=== PATIENT | male | born 1965 | race Caucasian/White ===

== ENCOUNTER 2016-10-25 16:36 | Emergency (ER) | payer SELFPAY ==
[2016-10-25 17:42] LABS: INR 1.28 (0.87-1.13)
[2016-10-25 17:46] LABS: Alanine Aminotransferase 20 units/L (7-56); Albumin 4.1 g/dL (3.9-5); Albumin/Globulin Ratio 1.2 %; Alkaline Phosphatase 102 units/L (35-129); Anion Gap 17 mmol/L; BUN/Creatinine Ratio 9.09; Blood Urea Nitrogen 10 mg/dL (9-20); Calcium 9.4 mg/dL (8.4-10.2); Carbon Dioxide 24 mmol/L (22-30); Chloride 102.7 mmol/L (98-107); Glucose 82 mg/dL (75-100); Lipase 50 units/L (13-60); Potassium 3.2 mmol/L (3.6-5.0); Sodium 140 mmol/L (137-145); Total Protein 7.5 g/dL (6.3-8.2)
--- NOTE | 2016-10-25 18:14 | Cat Scan Report ---
FINAL REPORT EXAM: CT HEAD/BRAIN WO CON HISTORY: DIZZINESS / BLURRED VISION TECHNIQUE: Standard unenhanced CT of the head at 5.0 millimeter axial increments. PRIORS: None. FINDINGS: The ventricular system is normal in size and configuration. There is no evidence for parenchymal volume loss. There is no evidence for mass lesion, mass effect, midline shift, acute intracranial hemorrhage, or acute ischemia/ infarction. No evidence for acute skull fracture is seen. No abnormality in the overlying scalp soft tissues is seen. Visualized paranasal sinuses are clear. Serge calcification of a few of the right mastoid air cells is seen. IMPRESSION: Negative CT of the head. No acute intracranial process noted.
[2016-10-25 18:23] LABS: Platelet Count 172 K/mm3 (140-440)
[2016-10-25 18:35] LABS: White Blood Count > 388.0 K/mm3 (4.5-11.0)
[2016-10-25 18:36] LABS: Hemoglobin 10.6 gm/dl (11.8-15.2); Mean Corpuscular Volume 97 fl (84-94)
[2016-10-25 18:37] LABS: Mean Corpuscular HGB Conc 34 % (32-34); Mean Corpuscular Hemoglobin 33 pg (28-32)
[2016-10-25 20:08] LABS: Basophils % (Manual) 1.5 % (0.0-1.8); Blastocytes % (Manual) 24.5 %; Total Cells Counted Percent 12.5
[2016-10-25 20:09] LABS: Anisocytosis 2+; Macrocytosis 1+; Poikilocytosis 2+
[2016-10-25 20:10] LABS: Hypochromasia 1+; Smudge Cells 2+
[2016-10-25 20:11] LABS: Diff Status Complete
[2016-10-25] MEDS ORDERED: NACL 0.9% 1000 ML 1,000 ML IV ONE (20:27)
--- NOTE | 2016-10-25 20:28 | Emergency Department Report ---
ED General Adult HPI - General Chief complaint: Abdominal Pain Stated complaint: PHYSICIAN REFERRAL Time Seen by Provider: 10/25/16 20:18 Source: patient, RN notes reviewed Mode of arrival: Ambulatory Limitations: No Limitations - History of Present Illness Initial comments: This is a 50-year-old male. He is previously unknown to me. He does not have a primary care doctor. He denies chronic medical conditions. The patient is sent to the ER for evaluation of hepatosplenomegaly. The patient reports that he's been having pain/ "ball in my stomach" for the past 4 months. The pain is achy. It is in the left lower quadrant. It does not radiate anywhere. It has no exacerbating or relieving factors. There is no headache, neck pain, chest pain or shortness of breath. Patient describes nonspecific dizziness and blurry vision. He describes weight loss. There is no hematemesis. There is no bright red blood per rectum. Patient reports that he had an outpatient ultrasound, which demonstrated a large spleen and large liver, however he does not have this report with him. -: Gradual Location: abdomen Quality: aching Consistency: intermittent Improves with: none Worsens with: none - Related Data Home Medications Medication Instructions Recorded Confirmed Last Taken Unobtainable 10/25/16 10/25/16 Unknown Allergies Allergy/AdvReac Type Severity Reaction Status Date / Time No Known Allergies Allergy Unverified 10/25/16 16:57 ED Review of Systems ROS: Stated complaint: PHYSICIAN REFERRAL Other details as noted in HPI Constitutional: malaise, weakness Eyes: denies: vision change ENT: denies: epistaxis Respiratory: denies: cough, shortness of breath Cardiovascular: denies: chest pain Gastrointestinal: abdominal pain Genitourinary: as per HPI Musculoskeletal: as per HPI Skin: as per HPI Neurological: weakness Psychiatric: as per HPI, anxiety ED Past Medical Hx - Past Medical History Hx Diabetes: Yes - Surgical History Past Surgical History?: No - Social History Smoking Status: Never Smoker Substance Use Type: None - Medications Home Medications: Home Medications Medication Instructions Recorded Confirmed Last Taken Type Unobtainable 10/25/16 10/25/16 Unknown History ED Physical Exam - General Limitations: No Limitations General appearance: alert, in no apparent distress - Head Head exam: Present: atraumatic, normocephalic - Eye Eye exam: Present: normal appearance, EOMI. Absent: nystagmus - ENT ENT exam: Present: normal exam, normal orophraynx, mucous membranes moist, normal external ear exam - Neck Neck exam: Present: normal inspection, full ROM. Absent: tenderness, meningismus - Respiratory Respiratory exam: Present: normal lung sounds bilaterally. Absent: respiratory distress, wheezes, rales, rhonchi, stridor, chest wall tenderness, accessory muscle use, decreased breath sounds, prolonged expiratory - Cardiovascular Cardiovascular Exam: Present: normal rhythm, tachycardia, normal heart sounds. Absent: systolic murmur, diastolic murmur, rubs, gallop - GI/Abdominal GI/Abdominal exam: Present: soft, normal bowel sounds, organomegaly. Absent: distended, tenderness, guarding, rebound, rigid - Rectal Rectal exam: Present: deferred - Extremities Exam Extremities exam: Present: normal inspection, full ROM, normal capillary refill. Absent: pedal edema, joint swelling, calf tenderness - Back Exam Back exam: Present: normal inspection, full ROM. Absent: tenderness, CVA tenderness (R), CVA tenderness (L), muscle spasm, paraspinal tenderness, vertebral tenderness - Neurological Exam Neurological exam: Present: alert, oriented X3, other (Extraocular movements intact. Tongue midline. No facial droop. Facial sensation intact to light touch in the V1, V2, V3 distribution bilaterally. 5 and 5 strength in 4 extremities.. Sensation is intact to light touch in 4 extremities.). Absent: motor sensory deficit - Psychiatric Psychiatric exam: Present: normal affect, normal mood - Skin Skin exam: Present: warm, dry, intact, normal color. Absent: rash ED Course Vital Signs 10/25/16 10/25/16 10/25/16 16:46 19:33 20:00 Temperature 98.3 F Pulse Rate 108 H 100 H 102 H Respiratory 24 31 H Rate Blood Pressure 149/100 121/71 O2 Sat by Pulse 93 86 Oximetry 10/25/16 10/25/16 10/25/16 20:31 21:11 21:13 Temperature Pulse Rate 103 H Respiratory 28 H 13 Rate Blood Pressure 126/76 126/76 126/76 O2 Sat by Pulse 88 99 100 Oximetry 10/25/16 10/25/16 10/25/16 21:30 22:00 22:30 Temperature Pulse Rate 101 H 102 H 99 H Respiratory 26 H 33 H 33 H Rate Blood Pressure 131/76 119/75 114/84 O2 Sat by Pulse 90 90 88 Oximetry 10/25/16 10/25/16 10/26/16 23:00 23:30 00:00 Temperature Pulse Rate 99 H 95 H 97 H Respiratory 22 31 H 31 H Rate Blood Pressure 123/93 133/81 139/85 O2 Sat by Pulse 88 86 Oximetry - Reevaluation(s) Reevaluation #1: 10/25/16 20:32 differential diagnosis: bLast crisis, polycythemia, nonspecific cancer/malignancy, pulmonary embolus Assessment and plan: 50-year-old male with palpable splenomegaly, tachycardia, white count of greater than 388 with a left shift, afebrile, concerning for chronic vs acute leukemic crisis He is currently saturating 87-88% on room air, with no pulmonary complaints. His outpatient imaging studies are not available. He will be placed on 2 L oxygen via nasal cannula. CT scan of the chest is ordered to exclude pulmonary embolus. CT scan of the abdomen and pelvis is ordered to better evaluate the patient's anatomy. Hematology on-call has been paged. 10/25/16 21:28 Reevaluation #2: 10/25/16 20:55 case d/w Dr Walsh; he recommends transfer to [place] for leukopheresis given elevated blast percentage. 10/25/16 20:58 10/25/16 21:06 Reevaluation #3: 10/25/16 21:29 case d/w Dr Anguiano of [place], who accepts the patient as a transfer. 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 The patient gave verbal permission for his test results and plan of care to be discussed with his family, and I discussed the aforementioned test results, plan of care with the patient's daughter, who then translated for the patient, who authorized and agree transfer. 10/25/16 21:55 ED Medical Decision Making - Lab Data Result diagrams: 10/25/16 17:10 10/25/16 17:10 Vital Signs 10/25/16 10/25/16 10/25/16 16:46 19:33 20:00 Temperature 98.3 F Pulse Rate 108 H 100 H 102 H Respiratory 24 31 H Rate Blood Pressure 149/100 121/71 O2 Sat by Pulse 93 86 Oximetry 10/25/16 10/25/16 10/25/16 20:31 21:11 21:13 Temperature Pulse Rate 103 H Respiratory 28 H 13 Rate Blood Pressure 126/76 126/76 126/76 O2 Sat by Pulse 88 99 100 Oximetry 10/25/16 10/25/16 10/25/16 21:30 22:00 22:30 Temperature Pulse Rate 101 H 102 H 99 H Respiratory 26 H 33 H 33 H Rate Blood Pressure 131/76 119/75 114/84 O2 Sat by Pulse 90 90 88 Oximetry 10/25/16 10/25/16 10/26/16 23:00 23:30 00:00 Temperature Pulse Rate 99 H 95 H 97 H Respiratory 22 31 H 31 H Rate Blood Pressure 123/93 133/81 139/85 O2 Sat by Pulse 88 86 Oximetry Lab Results 10/25/16 10/25/16 10/25/16 Range/Units 16:41 17:10 17:10 WBC > 388.0 H* (4.5-11.0) K/mm3 RBC 3.20 L (3.65-5.03) M/mm3 Hgb 10.6 L (11.8-15.2) gm/dl Hct 31.0 L (35.5-45.6) % MCV 97 H (84-94) fl MCH 33 H (28-32) pg MCHC 34 (32-34) % RDW 19.0 H (13.2-15.2) % Plt Count 172 (140-440) K/mm3 Add Manual Diff Complete Total Counted 200 Seg Neutrophils % Operation Specialist Seg Neuts % (Manual) 28.5 L (40.0-70.0) % Band Neutrophils % 20.5 % Lymphocytes % (Manual) 0 L (13.4-35.0) % Reactive Lymphs % (Man) 0 % Monocytes % (Manual) 0.5 (0.0-7.3) % Eosinophils % (Manual) 2.0 (0.0-4.3) % Basophils % (Manual) 1.5 (0.0-1.8) % Metamyelocytes % 8.5 % Myelocytes % 11.0 % Promyelocytes % 3.0 % Blast Cells % 24.5 % Nucleated RBC % 2.0 H (0.0-0.9) % Seg Neutrophils # Operation Specialist Seg Neutrophils # Man 0.0 L (1.8-7.7) K/mm3 Band Neutrophils # 0.0 K/mm3 Lymphocytes # (Manual) 0.0 L (1.2-5.4) K/mm3 Abs React Lymphs (Man) 0.0 K/mm3 Monocytes # (Manual) 0.0 (0.0-0.8) K/mm3 Eosinophils # (Manual) 0.0 (0.0-0.4) K/mm3 Basophils # (Manual) 0.0 (0.0-0.1) K/mm3 Metamyelocytes # 0.0 K/mm3 Myelocytes # 0.0 K/mm3 Promyelocytes # 0.0 K/mm3 Blast Cells # 0.0 K/mm3 WBC Morphology Not Reportable Hypersegmented Neuts Not Reportable Hyposegmented Neuts Not Reportable Hypogranular Neuts Not Reportable Smudge Cells 2+ Toxic Granulation Not Reportable Toxic Vacuolation Not Reportable Dohle Bodies Not Reportable Pelger-Huet Anomaly Not Reportable Ramírez Rods Not Reportable Platelet Estimate Appears normal Clumped Platelets Not Reportable Plt Clumps, EDTA Not Reportable Large Platelets Not Reportable Giant Platelets Not Reportable Platelet Satelliting Not Reportable Plt Morphology Comment Not Reportable RBC Morphology Not Reportable Dimorphic RBCs Not Reportable Polychromasia Not Reportable Hypochromasia 1+ Poikilocytosis 2+ Anisocytosis 2+ Microcytosis Not Reportable Macrocytosis 1+ Spherocytes Not Reportable Pappenheimer Bodies Not Reportable Sickle Cells Not Reportable Target Cells Not Reportable Tear Drop Cells Not Reportable Ovalocytes Not Reportable Helmet Cells Not Reportable [place] Bodies Not Reportable [place] Rings Not Reportable Areli Cells Not Reportable Bite Cells Not Reportable Crenated Cell Not Reportable Elliptocytes Not Reportable Acanthocytes (Spur) Not Reportable Rouleaux Not Reportable Hemoglobin C Crystals Not Reportable Schistocytes Not Reportable Malaria parasites Not Reportable Be Bodies Not Reportable Hem Pathologist Commnt Sent to pathology PT (12.2-14.9) Sec. INR (0.87-1.13) Sodium 140 (137-145) mmol/L Potassium 3.2 L (3.6-5.0) mmol/L Chloride 102.7 (98-107) mmol/L Carbon Dioxide 24 (22-30) mmol/L Anion Gap 17 mmol/L BUN 10 (9-20) mg/dL Creatinine 1.1 (0.8-1.5) mg/dL Estimated GFR > 60 ml/min BUN/Creatinine Ratio 9.09 % Glucose 82 (75-100) mg/dL POC Glucose 75 (70-105) Uric Acid (3.5-7.6) mg/dL Calcium 9.4 (8.4-10.2) mg/dL Magnesium (1.7-2.3) mg/dL Total Bilirubin 0.40 (0.1-1.2) mg/dL AST 31 (5-40) units/L ALT 20 (7-56) units/L Alkaline Phosphatase 102 (35-129) units/L Lactate Dehydrogenase (91-180) units/L Total Creatine Kinase (55-170) units/L Total Protein 7.5 (6.3-8.2) g/dL Albumin 4.1 (3.9-5) g/dL Albumin/Globulin Ratio 1.2 % Lipase 50 (13-60) units/L Urine Color (Yellow) Urine Turbidity (Clear) Urine pH (5.0-7.0) Ur Specific [place] (1.003-1.030) Urine Protein (Negative) mg/dL Urine Glucose (UA) (Negative) mg/dL Urine Ketones (Negative) mg/dL Urine Blood (Negative) Urine Nitrite (Negative) Urine Bilirubin (Negative) Urine Urobilinogen (<2.0) mg/dL Ur Leukocyte Esterase (Negative) Urine WBC (Auto) (0.0-6.0) /HPF Urine RBC (Auto) (0.0-6.0) /HPF Urine Mucus /HPF 10/25/16 10/25/16 10/25/16 Range/Units 17:10 17:10 17:15 WBC (4.5-11.0) K/mm3 RBC (3.65-5.03) M/mm3 Hgb (11.8-15.2) gm/dl Hct (35.5-45.6) % MCV (84-94) fl MCH (28-32) pg MCHC (32-34) % RDW (13.2-15.2) % Plt Count (140-440) K/mm3 Add Manual Diff Total Counted Seg Neutrophils % Seg Neuts % (Manual) (40.0-70.0) % Band Neutrophils % % Lymphocytes % (Manual) (13.4-35.0) % Reactive Lymphs % (Man) % Monocytes % (Manual) (0.0-7.3) % Eosinophils % (Manual) (0.0-4.3) % Basophils % (Manual) (0.0-1.8) % Metamyelocytes % % Myelocytes % % Promyelocytes % % Blast Cells % % Nucleated RBC % (0.0-0.9) % Seg Neutrophils # Seg Neutrophils # Man (1.8-7.7) K/mm3 Band Neutrophils # K/mm3 Lymphocytes # (Manual) (1.2-5.4) K/mm3 Abs React Lymphs (Man) K/mm3 Monocytes # (Manual) (0.0-0.8) K/mm3 Eosinophils # (Manual) (0.0-0.4) K/mm3 Basophils # (Manual) (0.0-0.1) K/mm3 Metamyelocytes # K/mm3 Myelocytes # K/mm3 Promyelocytes # K/mm3 Blast Cells # K/mm3 WBC Morphology Hypersegmented Neuts Hyposegmented Neuts Hypogranular Neuts Smudge Cells Toxic Granulation Toxic Vacuolation Dohle Bodies Pelger-Huet Anomaly Ramírez Rods Platelet Estimate Clumped Platelets Plt Clumps, EDTA Large Platelets Giant Platelets Platelet Satelliting Plt Morphology Comment RBC Morphology Dimorphic RBCs Polychromasia Hypochromasia Poikilocytosis Anisocytosis Microcytosis Macrocytosis Spherocytes Pappenheimer Bodies Sickle Cells Target Cells Tear Drop Cells Ovalocytes Helmet Cells [place] Bodies [place] Rings [place] Cells Bite Cells Crenated Cell Elliptocytes Acanthocytes (Spur) Rouleaux Hemoglobin C Crystals Schistocytes Malaria parasites Be Bodies Hem Pathologist Commnt PT 15.9 H (12.2-14.9) Sec. INR 1.28 H (0.87-1.13) Sodium (137-145) mmol/L Potassium (3.6-5.0) mmol/L Chloride (98-107) mmol/L Carbon Dioxide (22-30) mmol/L Anion Gap mmol/L BUN (9-20) mg/dL Creatinine (0.8-1.5) mg/dL Estimated GFR ml/min BUN/Creatinine Ratio % Glucose (75-100) mg/dL POC Glucose (70-105) Uric Acid 12.1 H (3.5-7.6) mg/dL Calcium (8.4-10.2) mg/dL Magnesium 2.40 H (1.7-2.3) mg/dL Total Bilirubin (0.1-1.2) mg/dL AST (5-40) units/L ALT (7-56) units/L Alkaline Phosphatase (35-129) units/L Lactate Dehydrogenase 1047 H (91-180) units/L Total Creatine Kinase 44 L (55-170) units/L Total Protein (6.3-8.2) g/dL Albumin (3.9-5) g/dL Albumin/Globulin Ratio % Lipase (13-60) units/L Urine Color (Yellow) Urine Turbidity (Clear) Urine pH (5.0-7.0) Ur Specific [place] (1.003-1.030) Urine Protein (Negative) mg/dL Urine Glucose (UA) (Negative) mg/dL Urine Ketones (Negative) mg/dL Urine Blood (Negative) Urine Nitrite (Negative) Urine Bilirubin (Negative) Urine Urobilinogen (<2.0) mg/dL Ur Leukocyte Esterase (Negative) Urine WBC (Auto) (0.0-6.0) /HPF Urine RBC (Auto) (0.0-6.0) /HPF Urine Mucus /HPF 10/25/16 Range/Units 20:53 WBC (4.5-11.0) K/mm3 RBC (3.65-5.03) M/mm3 Hgb (11.8-15.2) gm/dl Hct (35.5-45.6) % MCV (84-94) fl MCH (28-32) pg MCHC (32-34) % RDW (13.2-15.2) % Plt Count (140-440) K/mm3 Add Manual Diff Total Counted Seg Neutrophils % Seg Neuts % (Manual) (40.0-70.0) % Band Neutrophils % % Lymphocytes % (Manual) (13.4-35.0) % Reactive Lymphs % (Man) % Monocytes % (Manual) (0.0-7.3) % Eosinophils % (Manual) (0.0-4.3) % Basophils % (Manual) (0.0-1.8) % Metamyelocytes % % Myelocytes % % Promyelocytes % % Blast Cells % % Nucleated RBC % (0.0-0.9) % Seg Neutrophils # Seg Neutrophils # Man (1.8-7.7) K/mm3 Band Neutrophils # K/mm3 Lymphocytes # (Manual) (1.2-5.4) K/mm3 Abs React Lymphs (Man) K/mm3 Monocytes # (Manual) (0.0-0.8) K/mm3 Eosinophils # (Manual) (0.0-0.4) K/mm3 Basophils # (Manual) (0.0-0.1) K/mm3 Metamyelocytes # K/mm3 Myelocytes # K/mm3 Promyelocytes # K/mm3 Blast Cells # K/mm3 WBC Morphology Hypersegmented Neuts Hyposegmented Neuts Hypogranular Neuts Smudge Cells Toxic Granulation Toxic Vacuolation Dohle Bodies Pelger-Huet Anomaly Ramírez Rods Platelet Estimate Clumped Platelets Plt Clumps, EDTA Large Platelets Giant Platelets Platelet Satelliting Plt Morphology Comment RBC Morphology Dimorphic RBCs Polychromasia Hypochromasia Poikilocytosis Anisocytosis Microcytosis Macrocytosis Spherocytes Pappenheimer Bodies Sickle Cells Target Cells Tear Drop Cells Ovalocytes Helmet Cells [place] Bodies [place] Rings Areli Cells Bite Cells Crenated Cell Elliptocytes Acanthocytes (Spur) Rouleaux Hemoglobin C Crystals Schistocytes Malaria parasites Be Bodies Hem Pathologist Commnt PT (12.2-14.9) Sec. INR (0.87-1.13) Sodium (137-145) mmol/L Potassium (3.6-5.0) mmol/L Chloride (98-107) mmol/L Carbon Dioxide (22-30) mmol/L Anion Gap mmol/L BUN (9-20) mg/dL Creatinine (0.8-1.5) mg/dL Estimated GFR ml/min BUN/Creatinine Ratio % Glucose (75-100) mg/dL POC Glucose (70-105) Uric Acid (3.5-7.6) mg/dL Calcium (8.4-10.2) mg/dL Magnesium (1.7-2.3) mg/dL Total Bilirubin (0.1-1.2) mg/dL AST (5-40) units/L ALT (7-56) units/L Alkaline Phosphatase (35-129) units/L Lactate Dehydrogenase (91-180) units/L Total Creatine Kinase (55-170) units/L Total Protein (6.3-8.2) g/dL Albumin (3.9-5) g/dL Albumin/Globulin Ratio % Lipase (13-60) units/L Urine Color Yellow (Yellow) Urine Turbidity Clear (Clear) Urine pH 5.0 (5.0-7.0) Ur Specific [place] 1.015 (1.003-1.030) Urine Protein <15 mg/dl (Negative) mg/dL Urine Glucose (UA) Neg (Negative) mg/dL Urine Ketones Neg (Negative) mg/dL Urine Blood Neg (Negative) Urine Nitrite Neg (Negative) Urine Bilirubin Neg (Negative) Urine Urobilinogen < 2.0 (<2.0) mg/dL Ur Leukocyte Esterase Neg (Negative) Urine WBC (Auto) < 1.0 (0.0-6.0) /HPF Urine RBC (Auto) 3.0 (0.0-6.0) /HPF Urine Mucus Few /HPF - EKG Data -: EKG Interpreted by Me Rate: tachycardia - EKG Data 10/25/16 20:33 normal sinus, 99 bpm, normal intervals, normal axis, not morphologically consistent with STEMI, there is no prior for comparison. - Radiology Data Radiology results: report reviewed, image reviewed interpreted by me: X-ray of the chest is negative for acute disease CT scan of the abdomen and pelvis negative. CT scan of the chest interpretation is pending Critical care attestation.: If time is entered above; I have spent that time in minutes in the direct care of this critically ill patient, excluding procedure time. ED Disposition Clinical Impression: Hypoxia Leukocytosis (leucocytosis) Qualifiers: Leukocytosis type: unspecified Qualified Code(s): D72.829 - Elevated white blood cell count, unspecified Disposition: DC/TX-02 [id number]-TRM GEN HOSP IP Is pt being admited?: No Condition: Good Referrals: PRIMARY CARE, [Primary Care Provider] - 3-5 Days
[2016-10-25] MEDS ORDERED: K-DUR PO ONE (20:53)
[2016-10-25] MEDS ORDERED: NACL ONE (21:00)
[2016-10-25 21:18] LABS: Bilirubin,Urine NEG (Negative); Blood,Urine NEG (Negative); Ketones,Urine NEG (Negative); Leukocyte Esterase,Urine NEG (Negative); Mucus,Urine FEW /HPF; Nitrite,Urine NEG (Negative); Protein,Urine <15 mg/dL mg/dL (Negative); Urobilinogen,Urine < 2.0 mg/dL (<2.0); WBC,Urine < 1.0 /HPF (0.0-6.0)
[2016-10-25 21:36] LABS: Magnesium 2.4 mg/dL (1.7-2.3); Uric Acid 12.1 mg/dL (3.5-7.6)
--- NOTE | 2016-10-25 22:21 | Cat Scan Report ---
FINAL REPORT EXAM: CT ABDOMEN PELVIS W CON HISTORY: abdominal pain, hepatosplenomegaly TECHNIQUE: CT images are acquired through the Abdomen and Pelvis following intravenous administration of contrast. Transaxial, coronal and sagittal reformations are provided. PRIORS: None FINDINGS: Please see CT chest of the same date. The pelvis splenomegaly. Sequela of portal hypertension including multiple varices. No large gastroesophageal varices identified. Kidneys show no worrisome lesions, hydronephrosis, or calculi. Urinary bladder is without intraluminal stone. Small and large bowel are normal in caliber. Appendix is normal. No free air, free fluid, or lymphadenopathy identified. Aorta is normal in course and caliber. Superficial soft tissues are unremarkable. No acute or aggressive appearing skeletal findings. IMPRESSION: Sequela of portal hypertension as detailed above.
[2016-10-26 01:38] VITALS: BP 135/85
--- NOTE | 2016-10-26 07:37 | XRay Report ---
Chest 2 views: History: Dizziness weight loss. Findings: Normal cardiomediastinal silhouette. Trachea is midline. No consolidation, pneumothorax or pleural effusion. Impression: No acute cardiopulmonary findings.
--- NOTE | 2016-10-26 11:31 | Cat Scan Report ---
FINAL REPORT EXAM: CT ANGIOGRAPHY CHEST, abdomen and pelvis HISTORY: ? PE TECHNIQUE: CT imaging obtained through the chest in pulmonary angiographic phase following intravenous administration of contrast and subsequently through the abdomen and pelvis in cortical medullary phase. Transaxial, Coronal and sagittal reformats including maximal intensity projections are provided. PRIORS: None. FINDINGS: Chest: Cardiomegaly. Coronary artery disease. No pericardial effusion. Normal caliber main pulmonary artery. No central or large segmental pulmonary embolism. More detailed evaluation for pulmonary embolism is compromised by suboptimal opacification of the pulmonary arterial tree. Thoracic aorta is normal in course and caliber. No pneumothorax, effusion or focal airspace disease. The central airways are patent. No bronchiectasis. Abdomen/pelvis: Splenomegaly. Gastrohepatic and gastrosplenic varices. The portal vein and superior mesenteric vein are well opacified and patent. The liver, gallbladder, pancreas and adrenal glands are unremarkable. Kidneys are normal in size, axis and position. No hydroureteronephrosis or nephrolithiasis. No stones in the urinary bladder. No free fluid in the pelvis. Hollow enteric organs are normal in course and caliber. Normal appendix. No intra-abdominal free air/fluid or lymphadenopathy. The aorta is normal in course and caliber. No periaortic stranding or fluid. The superficial soft tissues are unremarkable. No acute bony abnormality or worrisome osseous lesions identified. IMPRESSION: No central or large segmental pulmonary embolism. No acute finding within the chest, abdomen or pelvis. Sequela of portal hypertension including splenomegaly and multiple varices as detailed above. Gastroenterology follow-up is recommended if not already established.
== END 2016-10-26 01:40 | disposition short-term general hospital (02) ==
LOC: ED 16:36
DX: R09.02 Hypoxemia (principal); D72.829 Elevated white blood cell count, unspecified; E11.9 Type 2 diabetes mellitus without complications
CPT/HCPCS: 36415; 70450; 71020; 71275; 74177; 80053; 81001; 82550; 82962; 83615; 83690; 83735; 84550; 85007; 85025; 85610; 93005; 93010; 96360; 99285; J7030; Q9967

== ENCOUNTER 2020-07-10 19:58 | Inpatient (IN) | payer MEDICAID ==
[2020-07-10] MEDS ORDERED: SODIUM CHLORIDE 0.9% 500 ML 500 ML IV ONE (21:01)
[2020-07-10] MEDS ORDERED: ACETAMINOPHEN 500 MG TAB PO STA (21:01)
[2020-07-10 21:22] LABS: Basophils % (Auto) 0.3 % (0.0-1.8); Eosinophils % (Auto) 0.2 % (0.0-4.3); Hematocrit 42.5 % (35.5-45.6); Hemoglobin 14.8 gm/dl (11.8-15.2); Lymphocytes # (Auto) 0.8 K/mm3 (1.2-5.4); Lymphocytes % (Auto) 6.7 % (13.4-35.0); Mean Corpuscular HGB Conc 35 % (32-34); Mean Corpuscular Volume 89 fl (84-94); Monocytes % (Auto) 8.9 % (0.0-7.3); Platelet Count 207 K/mm3 (140-440); Red Blood Count 4.81 M/mm3 (3.65-5.03); Red Cell Distribution Width 13.7 % (13.2-15.2)
[2020-07-10] MEDS ORDERED: fentaNYL 100 MCG/2 ML INJ IV ONE (21:23)
[2020-07-10] MEDS ORDERED: SODIUM CHLORIDE 0.9% 1000 ML 1,000 ML IV ONE (21:23)
[2020-07-10] MEDS ORDERED: ONDANSETRON 4 MG/2 ML INJ IV ONE (21:23)
--- NOTE | 2020-07-10 21:27 | Emergency Department Report ---
HPI - General Chief Complaint: Fever Time Seen by Provider: 07/10/20 21:08 - HPI HPI: Room 24 The patient is a 54-year-old male present with a chief complaint of headache. The patient states for the past 3 days he has had a frontal headache that is bee n intermittent. Patient states initially BC powder which helped his headache however today BC powder has not helped at all. Patient admits to nausea and dry heaving but denies vomiting. Patient states because of this he has been unable to eat food. Patient complains of bilateral rib soreness from the dry heaving. Patient denies any preceding trauma. Patient currently gives his pain a score o f 7/10. Patient has a history of leukemia states he last received chemotherapy 3 days ago ED Past Medical Hx - Past Medical History Previous Medical History?: Yes Hx Hypertension: Yes Hx Diabetes: Yes Hx of Cancer: Yes (Leukemia) Additional medical history: Leukemia - Surgical History Past Surgical History?: No - Family History Family history: no significant - Social History Smoking Status: Never Smoker Substance Use Type: None (Denies illicit drug use), Alcohol (Occasional) - Medications Home Medications: Home Medications Medication Instructions Recorded Confirmed Last Taken Type Unobtainable 10/25/16 10/25/16 Unknown History ED Review of Systems ROS: Stated complaint: HIGH BP/HEADACHE Other details as noted in HPI Constitutional: fever Eyes: denies: eye pain ENT: denies: throat pain Respiratory: denies: cough, shortness of breath Cardiovascular: denies: chest pain Endocrine: no symptoms reported Gastrointestinal: nausea. denies: vomiting Genitourinary: denies: dysuria Musculoskeletal: myalgia Neurological: headache Physical Exam - Physical Exam Vital Signs: Vital Signs 07/10/20 20:40 Temperature 103.2 F H Pulse Rate 112 H Respiratory 20 Rate Blood Pressure 143/71 O2 Sat by Pulse 97 Oximetry Physical Exam: GENERAL: The patient is well-developed well-nourished male lying on stretcher not appearing to be in acute distress. [] HEENT: Normocephalic. Atraumatic. Extraocular motions are intact. Patient has moist mucous membranes. NECK: Supple. No meningitic signs are noted. There is no nuchal rigidity CHEST/LUNGS: Clear to auscultation. There is no respiratory distress noted. HEART/CARDIOVASCULAR: Regular. There is no tachycardia. There is no gallop rub or murmur. ABDOMEN: Abdomen is soft, with soreness to palpation in the midepigastric and right upper quadrant. Patient has normal bowel sounds. There is no abdominal distention. SKIN: There is no rash. There is no edema. There is no diaphoresis. NEURO: The patient is awake, alert, and oriented. The patient is cooperative. The patient has no focal neurologic deficits. The patient has normal speech. MUSCULOSKELETAL: There is no evidence of acute injury. ED Course Vital Signs 07/10/20 20:40 Temperature 103.2 F H Pulse Rate 112 H Respiratory 20 Rate Blood Pressure 143/71 O2 Sat by Pulse 97 Oximetry - Reevaluation(s) Reevaluation #1: 07/10/20 23:27 Patient exhibiting frequent PVCs on monitor - Lumbar Puncture Consent Obtained: verbal consent, written consent Time Out Performed: Yes Indication for Procedure: headache, fever work up Patient Position: Sitting Upright/Leaning F Skin Prep: Povidone-Iodine 1% Local Anesthetic Used: Lidocaine 1% Amount of anesthesia used (mls): 5 Spinal Needle Gauge: 20G Spinal Needle Length: 3in Interspace Used: L4-L5 Fluid Initially Obtained: clear Complications: none Patient Tolerated Procedure: well ED Medical Decision Making - Lab Data Result diagrams: 07/10/20 20:50 07/10/20 20:50 - EKG Data -: EKG Interpreted by Me EKG shows normal: sinus rhythm Rate: normal - EKG Data When compared to previous EKG there are: previous EKG unavailable Interpretation: nonspecific ST-T wave doroteo, other (PAC) - Radiology Data Radiology results: report reviewed (Chest x-ray, CT head), image reviewed (Chest x-ray, CT head) interpreted by me: Chest x-ray-left lower lobe haziness. No pneumothorax. No foreign body seen [facility] [address] [place] [address] XRay Report Signed Patient: DAVON ARREGUIN MR#: [id number] : 1965 Acct:[id number] Age/Sex: 54 / M ADM Date: 07/10/20 Loc: ED Attending Dr: Ordering Physician: YSEDA CHAVARRIA MD Date of Service: 07/10/20 Procedure(s): XR chest 1V ap Accession Number(s): [id number] cc: SYEDA CHAVARRIA MD Fluoro Time In Minutes: CHEST 1 VIEW INDICATION: possible Sepsis COMPARISON: 10/25/2016 FINDINGS: SUPPORT DEVICES: None. HEART / MEDIASTINUM: No significant abnormality. LUNGS / PLEURA: Faint density left lower lobe. No pleural abnormality. No pneumothorax. ADDITIONAL FINDINGS: IMPRESSION: 1. Questionable left lower lobe pneumonia Signer Name: Tony العلي MD Signed: 07/10/2020 9:36 PM Workstation Name: [id number] Transcribed By: MAKENZIE Dictated By: Tony العلي MD Electronically Authenticated By: Tony العلي MD Signed Date/Time: 2135 DD/ 34 TD/TT: [facility] [address] [place] [address] Cat Scan Report Signed Patient: DAVON ARREGUIN MR#: [id number] : 1965 Acct:[id number] Age/Sex: 54 / M ADM Date: 07/10/20 Loc: ED Attending Dr: Ordering Physician: SYEDA CHAVARRIA MD Date of Service: 07/10/20 Procedure(s): CT head/brain wo con Accession Number(s): [id number] cc: SYEDA CHAVARRIA MD CT HEAD WITHOUT CONTRAST HISTORY: Frontal headache. h/o leukemia COMPARISON: None TECHNIQUE: CT imaging of the head was performed in the axial, sagittal, and coronal projections and bone algorithm in axial projection in the soft tissue algorithm. All CT scans at this location are performed using CT dose reduction for ALARA by means of automated exposure control. CONTRAST: None. FINDINGS: CT of the head 10/25/2016 compared Cerebral and Cerebellar Hemispheres: No evidence of mass or mass effect. No midline shift. No acute hemorrhage. No acute cortical infarction. No extra-axial fluid collection. Ventricles: Normal in size and configuration for age. Osseous Structures: No significant abnormality. Visualized Paranasal Sinuses: No significant abnormality. Additional Findings: None IMPRESSION: 1. No acute intracranial abnormality. NOTE: Acute infarct may not be visible by noncontrast CT. Signer Name: Tony العلي MD Signed: 2020 10:09 PM Workstation Name: [id number] Transcribed By: MAKENZIE Dictated By: Tony العلي MD Electronically Authenticated By: Tony العلي MD Signed Date/Time: 07/10/202208 DD/ 06 TD/TT: Print - Differential Diagnosis Sinusitis, meningitis, intracranial abscess, headache, sepsis, DKA Critical care attestation.: If time is entered above; I have spent that time in minutes in the direct care of this critically ill patient, excluding procedure time. ED Disposition Clinical Impression: Pneumonia, Headache, Frequent PVCs, Fever Disposition: OP ADMIT IP TO THIS HOSP Is pt being admited?: Yes Does the pt Need Aspirin: Yes Condition: Fair Instructions: Bacterial Pneumonia (ED) Time of Disposition: 01:18 (Hospitalist paged (Dr Mccray))
[2020-07-10 21:30] LABS: Bilirubin,Urine NEG (Negative); Blood,Urine SM (Negative); Color,Urine Yellow (Yellow); Mucus,Urine 3+ /HPF
[2020-07-10 21:32] LABS: INR 1.15 (0.87-1.13)
[2020-07-10 21:36] LABS: Alanine Aminotransferase 49 units/L (7-56); Albumin 3.6 g/dL (3.9-5); BUN/Creatinine Ratio 10; Blood Urea Nitrogen 10 mg/dL (9-20); Calcium 9.4 mg/dL (8.4-10.2); Hemolysis Index 3
--- NOTE | 2020-07-10 21:41 | XRay Report ---
CHEST 1 VIEW INDICATION: possible Sepsis COMPARISON: 10/25/2016 FINDINGS: SUPPORT DEVICES: None. HEART / MEDIASTINUM: No significant abnormality. LUNGS / PLEURA: Faint density left lower lobe. No pleural abnormality. No pneumothorax. ADDITIONAL FINDINGS: IMPRESSION: 1. Questionable left lower lobe pneumonia Signer Name: Tony العلي MD Signed: 07/10/2020 9:36 PM Workstation Name: [id number]
--- NOTE | 2020-07-10 22:14 | Cat Scan Report ---
CT HEAD WITHOUT CONTRAST HISTORY: Frontal headache. h/o leukemia COMPARISON: None TECHNIQUE: CT imaging of the head was performed in the axial, sagittal, and coronal projections and bone algori thm in axial projection in the soft tissue algorithm. All CT scans at this location are performed using CT dose reduction for ALARA by means of automated e xposure control. CONTRAST: None. FINDINGS: CT of the head 10/25/2016 compared Cerebral and Cerebellar Hemispheres: No evidence of mass or mass effect. No midline shift. No acute hemorrhage. No acute cortical infarction. No extra-axial fluid collection. Ventricles: Normal in size and configuration for age. Osseous Structures: No significant abnormality. Visualized Paranasal Sinuses: No significant abnormality. Additional Findings: None IMPRESSION: 1. No acute intracranial abnormality. NOTE: Acute infarct may not be visible by noncontrast CT. Signer Name: Tony العلي MD Signed: 07/10/2020 10:09 PM Workstation Name: [id number]
[2020-07-10] MEDS ORDERED: AZITHROMYCIN/NS 500 MG/250 ML 500 MG/250 ML BAG IV ONE (23:26)
[2020-07-10] MEDS ORDERED: cefTRIAXone/NS 2 GM/100 ML 2 GM/100 ML BAG IV ONE (23:26)
[2020-07-11 00:26] LABS: Glucose,CSF 67 mg/dL
[2020-07-11 00:47] LABS: Appearance,CSF Clear
[2020-07-11 01:12] LABS: Basophils CSF 0 %
[2020-07-11 01:13] LABS: White Blood Cell,CSF 2 /mm3 (1-10)
[2020-07-11 01:14] LABS: Red Blood Cell,CSF 2 /mm3 (0-0)
[2020-07-11] MEDS ORDERED: ASPIRIN 325 MG TAB PO ONE (01:23)
--- NOTE | 2020-07-11 02:25 | History and Physical Report ---
History of Present Illness Date of examination: 07/11/20 Date of admission: 07/11/20 Chief complaint: Headache Fever History of present illness: The patient is a 54-year-old male present with a chief complaint of headache. The patient states for the past 3 days he has had a frontal headache that is been intermittent. Patient states initially BC powder which helped his headache however today BC powder has not helped at all. Patient admits to nausea and dry heaving but denies vomiting. Patient states because of this he has been unable to eat food. Patient complains of bilateral rib soreness from the dry heaving. Patient denies any preceding trauma. Patient currently gives his pain a score of 7/10. Patient has a history of leukemia states he last received chemotherapy 3 days ago Ed work up shows-WBC 11.3, hemoglobin 14.8, platelet 207, D-dimer 1024.2, sodium level 130 Sodium 130, potassium 4.4, creatinine 1.0, glucose 129. CT of the head negative no acute finding, chest x-ray showed left lower lobe pneumonia. EKG frequent PVC. Patient seen in ED at bedside. Patient alert oriented x3. Patient reports he came due to headache and fever. Patient report he has headache presently. Pain level 5/10. Lumbar puncture done spinal fluid collected sent for pathology test -will follow up with result Past History Past Medical History: diabetes, other (Leucomia) Past Surgical History: No surgical history Social history: no significant social history Medications and Allergies Allergies Allergy/AdvReac Type Severity Reaction Status Date / Time No Known Allergies Allergy Unverified 10/25/16 16:57 Home Medications Medication Instructions Recorded Confirmed Last Taken Type Unobtainable 10/25/16 10/25/16 Unknown History Review of Systems Constitutional: fatigue, weakness, malaise Ears, nose, mouth and throat: no epistaxis Cardiovascular: shortness of breath Respiratory: cough, congestion Gastrointestinal: no melena Genitourinary Male: no genital sores Rectal: no pain Musculoskeletal: myalgias Integumentary: no rash, no pruritis Neurological: no weakness Hematologic/Lymphatic: no easy bruising, no easy bleeding Allergic/Immunologic: no urticaria Exam - Constitutional Vitals: Temp Pulse Resp BP Pulse Ox 99.4 F 86 21 107/74 97 07/10/20 23:29 07/11/20 01:30 07/11/20 01:30 07/11/20 01:30 07/11/20 01:30 General appearance: Present: mild distress - EENT Eyes: Present: PERRL ENT: hearing intact, clear oral mucosa - Neck Neck: Present: supple, normal ROM - Respiratory Respiratory effort: normal Respiratory: bilateral: CTA - Cardiovascular Heart rate: 86 Heart Sounds: Present: S1 & S2. Absent: rub, click - Extremities Extremities: pulses symmetrical, No edema Peripheral Pulses: within normal limits - Abdominal General gastrointestinal: Present: soft, non-tender, non-distended, normal bowel sounds Male genitourinary: Present: normal - Integumentary Integumentary: Present: clear, warm, dry - Musculoskeletal Musculoskeletal: gait normal, strength equal bilaterally - Psychiatric Psychiatric: appropriate mood/affect, intact judgment & insight, cooperative - Neurologic Neurologic: CNII-XII intact, moves all extremities - Allied Health Allied health notes reviewed: nursing HEART Score - HEART Score Troponin: Troponin T < 0.010 ng/mL (0.00-0.029) 07/10/20 Unknown Results - Labs CBC & Chem 7: 07/10/20 20:50 07/11/20 01:30 Labs: Abnormal lab results 07/10/20 07/10/20 07/10/20 Range/Units 20:50 20:50 21:06 WBC 11.3 H (4.5-11.0) K/mm3 MCHC 35 H (32-34) % Lymph % (Auto) 6.7 L (13.4-35.0) % [place] % (Auto) 8.9 H (0.0-7.3) % Lymph # (Auto) 0.8 L (1.2-5.4) K/mm3 [place] # (Auto) 1.0 H (0.0-0.8) K/mm3 Seg Neutrophils % 83.9 H (40.0-70.0) % Seg Neutrophils # 9.5 H (1.8-7.7) K/mm3 INR 1.15 H (0.87-1.13) D-Dimer (0-234) ng/mlDDU Sodium 130 L (137-145) mmol/L Chloride 92.0 L (98-107) mmol/L Glucose 129 H (75-100) mg/dL AST 73 H (5-40) units/L Total Protein 8.3 H (6.3-8.2) g/dL Albumin 3.6 L (3.9-5) g/dL 07/11/ Range/Units 01:30 WBC (4.5-11.0) K/mm3 MCHC (32-34) % Lymph % (Auto) (13.4-35.0) % [place] % (Auto) (0.0-7.3) % Lymph # (Auto) (1.2-5.4) K/mm3 [place] # (Auto) (0.0-0.8) K/mm3 Seg Neutrophils % (40.0-70.0) % Seg Neutrophils # (1.8-7.7) K/mm3 INR (0.87-1.13) D-Dimer 1024.20 H (0-234) ng/mlDDU Sodium (137-145) mmol/L Chloride (98-107) mmol/L Glucose (75-100) mg/dL AST (5-40) units/L Total Protein (6.3-8.2) g/dL Albumin (3.9-5) g/dL Assessment and Plan - Patient Problems (1) Pneumonia Current Visit: Yes Status: Acute Plan to address problem: ? cause bacterial/Viral Pneumonia Empiric antibiotics Blood culture-f/u with result (2) Fever Current Visit: Yes Status: Acute Plan to address problem: Monitor v/s PRN Tylenol and continue ABX Continue IV hydration (3) Frequent PVCs Current Visit: Yes Status: Acute Plan to address problem: Monitor cardiac rhyme, EKG ECHO and hearing stenographer consult (4) History of diabetes mellitus Current Visit: Yes Status: Acute Plan to address problem: Monitor blood sugar with SSI Check HGA1c (5) Elevated d-dimer Current Visit: Yes Status: Acute Plan to address problem: d-dimer 1024.2 on admission ? cause Check CT of the chest and bilateral leg US Anti-coagulant with Lovenox -prophylaxis Patiet denies chest pain/shortness of breath (6) Hyponatremia Current Visit: Yes Status: Acute Plan to address problem: Monitor sodium level IV hydration with normal salin (7) Headache Current Visit: Yes Status: Acute Plan to address problem: Patient reported headache on admission. Pain level is 5/10. CT of the head no acute finding Lumbar puncture spinal fluid collected for pathological test (8) DVT prophylaxis Current Visit: Yes Status: Acute Plan to address problem: Subcutaneous Lovenox
[2020-07-11] MEDS ORDERED: ALBUTEROL 2.5 MG/3 ML NEBU IH PRN (02:26)
[2020-07-11] MEDS ORDERED: ALUM-MAG HYDROXIDE-SIMETHICONE 200-200-20MG/5ML ORAL LIQD 30 ML PO PRN (02:26)
[2020-07-11] MEDS ORDERED: ONDANSETRON 4 MG/2 ML INJ IV PRN (02:26)
[2020-07-11] MEDS ORDERED: traZODone 50 MG TAB PO PRN (02:26)
[2020-07-11] MEDS ORDERED: cefTRIAXone/NS 1 GM/50 ML 1 GM/50 ML BAG IV SCH ×2 (03:00→10:00)
[2020-07-11] MEDS ORDERED: AZITHROMYCIN/NS 500 MG/250 ML 500 MG/250 ML BAG IV ONE (03:30)
[2020-07-11] MEDS ORDERED: cefTRIAXone/NS 2 GM/100 ML 2 GM/100 ML BAG IV ONE (03:30)
--- NOTE | 2020-07-11 04:31 | Cat Scan Report ---
. CTA CHEST WITH IV CONTRAST INDICATION: Shortness of breath. TECHNIQUE: Axial CT images were obtained through the chest after injection of 100 cc IV contrast. 3 plane MIP re constructions were produced. All CT scans at this location are performed using CT dose reduction for ALARA by means of automated exposure control. COMPARISON: CTA chest 10/25/2014 FINDINGS: PULMONARY ARTERIES: No pulmonary emboli. THORACIC AORTA: No acute abnormality. HEART: Normal. CORONARY ARTERIES: No significant calcification. PLEURA: No pleural effusion. No pneumothorax. LYMPH NODES: No significant adenopathy. LUNGS: Moderate left lower lobe bronchopneumonia ADDITIONAL FINDINGS: None. UPPER ABDOMEN: No acute findings. SKELETAL STRUCTURES: No significant osseous abnormality. IMPRESSION: 1. No CT evidence for pulmonary embolism. 2. Left lower lobe bronchopneumonia Signer Name: Reed Gonzalez MD Signed: 07/11/2020 4:27 AM Workstation Name: [id number]
[2020-07-11] MEDS: traMADol 50 MG TAB PO PRN ×2 (05:41→10:04)
[2020-07-11] MEDS: SODIUM CHLORIDE 0.9% 1000 ML 1,000 ML IV SCH ×2 (05:42→21:12)
[2020-07-11 07:42] LABS: C-Reactive Protein 23.4 mg/dL (0.00-1.30)
--- NOTE | 2020-07-11 08:37 | Event Note ---
Date: 07/11/20 This is a follow-up from an admission earlier this morning. We will continue to plan as outlined in H&P. Continue IV antibiotics and consult ID for further evaluation.
[2020-07-11] MEDS: ENOXAPARIN 40 MG/0.4 ML INJ SUB-Q SCH (09:36)
[2020-07-11] MEDS ORDERED: AZITHROMYCIN/NS 500 MG/250 ML 500 MG/250 ML BAG IV SCH (10:00)
[2020-07-11] MEDS: AZITHROMYCIN 500 MG in SODIUM CHLORIDE 0.9% 250ML 250 ML IV SCH (10:43)
--- NOTE | 2020-07-11 12:15 | Consultation ---
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 Patient also reports bilateral chest pain and some cough. On arrival, temperature 100.2, HR 112, RR 20, BP 143/71, O2 sat 97%. Initial WBC 11.3. Hemoglobin 14.8. Platelets 207. D-dimer 1024. Creatinine 1. AST 73. CRP 23. Urinalysis negative. Patient underwent lumbar puncture CSF with 2 WBCs, glucose 67, protein 25. Blood culture 07/15/2020 no growth to date. CSF culture 07/10/2020 pending. Chest x-ray shows left lower lobe pneumonia. CT of the head was unremarkable. CT chest shows no pulmonary embolism, left lower lobe consolidation. Review of Systems: positive in bold print General: fever, chills, malaise Cutaneous: rash, pruritus Head: headaches or injury Eyes: changes in vision, eye pain, double vision Ears: ear pain, ear discharge, ringing or hearing loss Nose: nose bleeding, stuffiness Mouth & throat: bleeding gums, horseness, no dental problems, or swollen glands Neck: no pain, node enlargement/lumps, tyroid enlargement or tenderness Respiratory: SOB, cough, GUILLAUME, wheezing, sputum, hemoptysis, pleuritic chest pain Cardiovascular: chest pain, leg edema, cyanosis, GUILLAUME, orthopnea Musculoskeletal: edema, deformities, pain Gastrointestinal: nausea, vomiting, hematemesis, diarrhea, constipation, melena, bright red blood in stools, fecal incontinence, jaundice Genitourinary/Reproductive: frequent urination, dysuria, hematuria, incontinence Neurogical: seizures, headaches, weakness, paresthesias, loss of speech or vision; memory loss, vertigo, tremors, numbness Psychiatric: stable mood; excessive anxiety, sadness or moodiness Past History Past Medical History: diabetes, other (Leucomia) Past Surgical History: No surgical history Social history: no significant social history Medications and Allergies Allergies Allergy/AdvReac Type Severity Reaction Status Date / Time No Known Allergies Allergy Unverified 10/25/16 16:57 Home Medications Medication Instructions Recorded Confirmed Last Taken Type Unobtainable 10/25/16 10/25/16 Unknown History Active Meds: Active Medications Al Hydrox/Mg Hydrox/Simethicone (Alum-Mag Hydroxide-Simethicone [phone]/5ml Oral Liqd 30 Ml) 15 ml PO Q4H PRN PRN Reason: Indigestion Albuterol (Albuterol 2.5 Mg/3 Ml Nebu) 2.5 mg IH Q4HRT PRN PRN Reason: Shortness Of Breath Enoxaparin Sodium (Enoxaparin 40 Mg/0.4 Ml Inj) 40 mg SUB-Q QDAY LILY; Protocol Last Admin: 07/11/20 09:36 Dose: 40 mg Documented by: Azithromycin (Zithromax/Ns) 500 mg in 250 mls @ 250 mls/hr IV Q24HR LILY Last Admin: 07/11/20 10:44 Dose: Not Given Documented by: Sodium Chloride (Nacl 0.9% 1000 Ml) 1,000 mls @ 75 mls/hr IV DIRECT LILY Last Admin: 07/11/20 05:42 Dose: 75 mls/hr Documented by: Ceftriaxone Sodium (Rocephin/Ns 1 Gm/50 Ml) 1 gm in 50 mls @ 100 mls/hr IV Q24HR LILY; Protocol Last Admin: 07/11/20 09:34 Dose: 100 mls/hr Documented by: Azithromycin 500 mg/ Sodium (Chloride) 250 mls @ 250 mls/hr IV Q24HR LILY Last Admin: 07/11/20 10:43 Dose: 250 mls/hr Documented by: Ondansetron HCl (Ondansetron 4 Mg/2 Ml Inj) 4 mg IV Q4H PRN PRN Reason: Nausea And Vomiting Tramadol HCl (Tramadol 50 Mg Tab) 50 mg PO Q4H PRN PRN Reason: Pain, Moderate (4-6) Last Admin: 07/11/20 10:04 Dose: 50 mg Documented by: Trazodone HCl (Trazodone 50 Mg Tab) 50 mg PO QHS PRN PRN Reason: Insomnia Physical Examination - Physical Exam Narrative exam: General appearance: Alert in NAD pleasant Eyes: anicteric sclerae, moist conjunctivae; no lid-lag; PERRLA HENT: Normocephalic, Atraumatic; normal external ears, nares open, oropharynx clear v Neck: supple, tracheal midline, no JVD Lungs: Left-sided crackles CV: RRR no murmur Abdomen: Soft, non-tender; no masses or hepatosplenomegaly Extremities: no edema, no cyanosis Skin: No rash. Psych: no agitated Neuro: alert and oriented x 3. Moving all extermities - Constitutional Vitals: Vital Signs Temp Pulse Resp BP Pulse Ox 99.8 F H 78 18 111/67 96 07/11/20 06:25 07/11/20 06:25 07/11/20 06:25 07/11/20 06:25 07/11/20 06:25 Temperature -Last 24 Hours Temperature 99.8 F Temperature 99.9 F Temperature 99.4 F Temperature 103.2 F Results - Labs CBC & Chem 7: 07/10/20 20:50 07/11/20 01:30 Labs: Abnormal lab results 07/10/20 07/10/20 07/10/20 Range/Units 20:50 20:50 21:06 WBC 11.3 H (4.5-11.0) K/mm3 MCHC 35 H (32-34) % Lymph % (Auto) 6.7 L (13.4-35.0) % [place] % (Auto) 8.9 H (0.0-7.3) % Lymph # (Auto) 0.8 L (1.2-5.4) K/mm3 [place] # (Auto) 1.0 H (0.0-0.8) K/mm3 Seg Neutrophils % 83.9 H (40.0-70.0) % Seg Neutrophils # 9.5 H (1.8-7.7) K/mm3 INR 1.15 H (0.87-1.13) D-Dimer (0-234) ng/mlDDU Sodium 130 L (137-145) mmol/L Chloride 92.0 L (98-107) mmol/L Glucose 129 H (75-100) mg/dL POC Glucose (70-105) mg/dL Ferritin (30.0-300.0) ng/mL AST 73 H (5-40) units/L Lactate Dehydrogenase (91-180) units/L C-Reactive Protein (0.00-1.30) mg/dL Total Protein 8.3 H (6.3-8.2) g/dL Albumin 3.6 L (3.9-5) g/dL 07/11/20 07/11/20 07/11/20 Range/Units 01:30 01:30 01:30 WBC (4.5-11.0) K/mm3 MCHC (32-34) % Lymph % (Auto) (13.4-35.0) % [place] % (Auto) (0.0-7.3) % Lymph # (Auto) (1.2-5.4) K/mm3 [place] # (Auto) (0.0-0.8) K/mm3 Seg Neutrophils % (40.0-70.0) % Seg Neutrophils # (1.8-7.7) K/mm3 INR (0.87-1.13) D-Dimer 1024.20 H (0-234) ng/mlDDU Sodium (137-145) mmol/L Chloride (98-107) mmol/L Glucose 120 H (75-100) mg/dL POC Glucose (70-105) mg/dL Ferritin 952.7 H (30.0-300.0) ng/mL AST (5-40) units/L Lactate Dehydrogenase 290 H (91-180) units/L C-Reactive Protein 23.40 H (0.00-1.30) mg/dL Total Protein (6.3-8.2) g/dL Albumin (3.9-5) g/dL 07/11/20 Range/Units 11:29 WBC (4.5-11.0) K/mm3 MCHC (32-34) % Lymph % (Auto) (13.4-35.0) % [place] % (Auto) (0.0-7.3) % Lymph # (Auto) (1.2-5.4) K/mm3 [place] # (Auto) (0.0-0.8) K/mm3 Seg Neutrophils % (40.0-70.0) % Seg Neutrophils # (1.8-7.7) K/mm3 INR (0.87-1.13) D-Dimer (0-234) ng/mlDDU Sodium (137-145) mmol/L Chloride (98-107) mmol/L Glucose (75-100) mg/dL POC Glucose 108 H (70-105) mg/dL Ferritin (30.0-300.0) ng/mL AST (5-40) units/L Lactate Dehydrogenase (91-180) units/L C-Reactive Protein (0.00-1.30) mg/dL Total Protein (6.3-8.2) g/dL Albumin (3.9-5) g/dL Assessment and Plan Cultures: Blood culture 07/15/2020 no growth to date. CSF culture 07/10/2020 pending. Assessment: 55 years old male with history of ?CML on oral dasatinib by [facility] admitted on 07/10/2020 secondary to a week history of severe frontal headache associated with nausea: #Sepsis: present on admission with fever, tachycardia, leukocytosis; source pneumonia pneumonia #Left-sided pneumonia in immunocompromise host: Patient taking desatinib for CML?. Likely community-acquired pneumonia however will rule out bacterial pneumonia, follow invasive pneumonia, PJP, COVID. Elevated CRP of 23. #Headache in immunocompromised host: CSF no evidence of meningitis. CT of the head unremarkable. #History of CML: Follow-up with at [facility] Recommendations: -Obtain SARS-CoV-2 PCR -Obtain procalcitonin -Check Streptococcus urine antigen and Legionella urine antigen -Check asperogillus serum ag, crypto serum ag -Stop ceftriaxone -Continue azithromycin -Start cefepime 2 g IV every 8 hours -Start vancomycin with PK consult -Check MRSA PCR -Obtain records from [facility]/consult Hem/onc Will follow. Donita Garcia MD Infectious Diseases Business Law Instructor [facility] ([facility]) M [phone] O [phone]
--- NOTE | 2020-07-11 12:42 | Consultation ---
History of Present Illness Consult date: 07/11/20 Consult reason: arrhythmia History of present illness: 55 years old male with history of CML [facility] [place] [facility] secondary to a week history of severe frontal headache associated with nausea. Patient also reports bilateral chest pain and some cough. On arrival, temperature 100.2 and patient underwent lumbar puncture. Chest x-ray shows left lower lobe pneumonia. CT of the head was unremarkable. CT chest shows no pulmonary embolism, left lower lobe consolidation. Cardiology was consulted due to frequent PVCs on telemetry. Patient denies any prior history of heart problems or arrhythmias. He has not had any syncope, pre-syncope or palpitations. Review of telemetry reveals intermittent isolated PVCs as well as episodes of paroxysmal atrial fibrillation and flutter. ECG is consistent with atrial flutter, mostly 2:1 AV conduction, isolated PVCs, nonspecific T wave abnormality. Past History Past Medical History: diabetes, other (Leucomia) Past Surgical History: No surgical history Social history: no significant social history Medications and Allergies Allergies Allergy/AdvReac Type Severity Reaction Status Date / Time No Known Allergies Allergy Unverified 10/25/16 16:57 Home Medications Medication Instructions Recorded Confirmed Last Taken Type Unobtainable 10/25/16 10/25/16 Unknown History Active Meds: Active Medications Al Hydrox/Mg Hydrox/Simethicone (Alum-Mag Hydroxide-Simethicone [id number]/5ml Oral Liqd 30 Ml) 15 ml PO Q4H PRN PRN Reason: Indigestion Albuterol (Albuterol 2.5 Mg/3 Ml Nebu) 2.5 mg IH Q4HRT PRN PRN Reason: Shortness Of Breath Enoxaparin Sodium (Enoxaparin 40 Mg/0.4 Ml Inj) 40 mg SUB-Q QDAY LILY; Protocol Last Admin: 07/11/20 09:36 Dose: 40 mg Documented by: Azithromycin (Zithromax/Ns) 500 mg in 250 mls @ 250 mls/hr IV Q24HR LILY Last Admin: 07/11/20 10:44 Dose: Not Given Documented by: Sodium Chloride (Nacl 0.9% 1000 Ml) 1,000 mls @ 75 mls/hr IV DIRECT LILY Last Admin: 07/11/20 05:42 Dose: 75 mls/hr Documented by: Azithromycin 500 mg/ Sodium (Chloride) 250 mls @ 250 mls/hr IV Q24HR LILY Last Admin: 07/11/20 10:43 Dose: 250 mls/hr Documented by: Cefepime HCl (Cefepime/Ns 2 Gm/100 Ml) 2 gm in 100 mls @ 200 mls/hr IV Q8HR LILY; Protocol Ondansetron HCl (Ondansetron 4 Mg/2 Ml Inj) 4 mg IV Q4H PRN PRN Reason: Nausea And Vomiting Tramadol HCl (Tramadol 50 Mg Tab) 50 mg PO Q4H PRN PRN Reason: Pain, Moderate (4-6) Last Admin: 07/11/20 10:04 Dose: 50 mg Documented by: Trazodone HCl (Trazodone 50 Mg Tab) 50 mg PO QHS PRN PRN Reason: Insomnia Review of Systems All systems: negative (per hpi) Physical Examination Vital Signs Temp Pulse Resp BP Pulse Ox 103.2 F H 112 H 20 143/71 97 07/10/20 20:40 07/10/20 20:40 07/10/20 20:40 07/10/20 20:40 07/10/20 20:40 General appearance: no acute distress Cardiac: Positive: Reg Rate and Rhythm Lungs: Positive: Decreased Breath Sounds Neuro: Positive: Grossly Intact Abdomen: Positive: Soft, Active Bowel Sounds Extremities: Absent: edema Results 07/10/20 20:50 07/11/20 01:30 Cardiac Enzymes 07/10/20 07/11/20 Range/Units 20:50 01:30 AST 73 H (5-40) units/L Lactate Dehydrogenase 290 H (91-180) units/L Coagulation 07/10/20 Range/Units 21:06 PT 14.5 (12.2-14.9) Sec. INR 1.15 H (0.87-1.13) CBC 07/10/20 Range/Units 20:50 WBC 11.3 H (4.5-11.0) K/mm3 RBC 4.81 (3.65-5.03) M/mm3 Hgb 14.8 (11.8-15.2) gm/dl Hct 42.5 (35.5-45.6) % Plt Count 207 (140-440) K/mm3 Lymph # (Auto) 0.8 L (1.2-5.4) K/mm3 [place] # (Auto) 1.0 H (0.0-0.8) K/mm3 Eos # (Auto) 0.0 (0.0-0.4) K/mm3 Baso # (Auto) 0.0 (0.0-0.1) K/mm3 Comprehensive Metabolic Panel 07/10/20 07/11/20 Range/Units 20:50 01:30 Sodium 130 L (137-145) mmol/L Potassium 4.4 (3.6-5.0) mmol/L Chloride 92.0 L (98-107) mmol/L Carbon Dioxide 23 (22-30) mmol/L BUN 10 (9-20) mg/dL Creatinine 1.0 (0.8-1.3) mg/dL Glucose 129 H 120 H (75-100) mg/dL Calcium 9.4 (8.4-10.2) mg/dL AST 73 H (5-40) units/L ALT 49 (7-56) units/L Alkaline Phosphatase 64 (35-129) units/L Total Protein 8.3 H (6.3-8.2) g/dL Albumin 3.6 L (3.9-5) g/dL Assessment and Plan 1. Paroxysmal atrial fibrillation and flutter 2. Isolated PVCs 3. Sepsis 4. Pneumonia 5. CML Recommend: Atrial and ventricular arrhythmias are likely being triggered by ongoing i nfection/sepsis. We will continue to monitor - he may eventually need to be started on systemic anticoagulation if he continues to have paroxysmal atrial fibrillation or flutter if there is no hematologic contra-indication. Start low dose beta praveena and titrate as tolerated Check Echocardiogram Continue to monitor telemetry
--- NOTE | 2020-07-11 14:02 | Electrocardiograph Report ---
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
--- NOTE | 2020-07-11 14:05 | Electrocardiograph Report ---
[facility] Test Date: 2020-07-11 Test Time: 12:32:17 Pat Name: DAVON ARREGUIN Department: Room: A357 1 Gender: M Devops Engineer: GREGORIO : 1965 Requested By: CONNOR GREGORIO Order Number: [id number] Reading MD: Jorge Munoz Measurements Intervals [place] Rate: 151 P: 0 MI: 88 QRS: 42 QRSD: 82 T: QT: 300 QTc: 474 Interpretive Statements Atrial flutter Multiple ventricular premature complexes Repol abnrm suggests ischemia, inferior leads Compared to ECG 07/10/2020 23:30:14 Ventricular premature complex(es) now present Early repolarization now present Possible ischemia now present Sinus rhythm no longer present Atrial premature complex(es) no longer present Electronically Signed On 07-11-2020 11:05:51 PDT by Jorge Munoz
[2020-07-11] MEDS ORDERED: ACETAMINOPHEN 325 MG TAB PO PRN (18:13)
[2020-07-11] MEDS: CEFEPIME/NS 2 GM/100 ML 2 GM/100 ML BAG IV SCH ×2 (18:29→22:54)
[2020-07-11] MEDS: METOPROLOL TARTRATE 25 MG TAB PO SCH ×2 (18:36→21:12)
--- NOTE | 2020-07-11 21:59 | Vascular Lab Report ---
DUPLEX DOPPLER LOWER EXTREMITY VEINS, BILATERAL INDICATION / CLINICAL INFORMATION: R/o DVT. TECHNIQUE: Duplex doppler imaging was performed through the veins of both lower extremities using venous trey rachael and other maneuvers. COMPARISON: None available. FINDINGS: RIGHT COMMON FEMORAL VEIN: Negative. RIGHT FEMORAL VEIN: Negative. RIGHT POPLITEAL VEIN: Negative. RIGHT CALF VEINS: Negative. LEFT COMMON FEMORAL VEIN: Negative. LEFT FEMORAL VEIN: Negative. LEFT POPLITEAL VEIN: Negative. LEFT CALF VEINS: Negative. ADDITIONAL FINDINGS: None. IMPRESSION: 1. No sonographic evidence for DVT in either lower extremity. Signer Name: Tony العلي MD Signed: 07/11/2020 9:55 PM Workstation Name: [id number]
[2020-07-12] MEDS: CEFEPIME/NS 2 GM/100 ML 2 GM/100 ML BAG IV SCH ×3 (06:17→22:20)
--- NOTE | 2020-07-12 08:21 | Progress Note ---
Assessment and Plan Assessment and plan: Sepsis. Patient meets criteria given the fever, tachycardia, leukocytosis and diagnosis of pneumonia. Left-sided pneumonia. Paroxysmal atrial fibrillation/flutter Headache. History of CML. 07/12/2020. Follow-up Covid testing. Continue antibiotics of vancomycin, azithromycin and cefepime. Follow-up MRSA PCR, Aspergillus serum antigen, crypto serum antigen, Streptococcus urine antigen and Legionella urine antigen. Initiate anticoagulation per cardiology. Continue low-dose beta-praveena for ra te control. Follow-up echocardiogram History Interval history: No new issues overnight except for fever Hospitalist Physical - Constitutional Vitals: Temp Pulse Resp BP Pulse Ox 99.1 F 71 20 111/71 97 07/12/20 05:39 07/12/20 05:39 07/12/20 05:39 07/12/20 05:39 07/12/20 05:39 General appearance: Present: no acute distress - EENT Eyes: Present: PERRL, EOM intact ENT: hearing intact, clear oral mucosa, dentition normal - Neck Neck: Present: supple, normal ROM - Respiratory Respiratory effort: normal Respiratory: bilateral: CTA - Cardiovascular Rhythm: regular Heart Sounds: Present: S1 & S2. Absent: gallop, rub - Extremities Extremities: no ischemia, No edema, Full ROM - Abdominal General gastrointestinal: soft, non-tender, non-distended, normal bowel sounds - Integumentary Integumentary: Present: clear, warm, dry - Neurologic Neurologic: CNII-XII intact, moves all extremities HEART Score - HEART Score Troponin: Troponin T < 0.010 ng/mL (0.00-0.029) 07/10/20 Unknown Results - Labs CBC & Chem 7: 07/10/20 20:50 07/11/20 01:30 Labs: Laboratory Last Values WBC 11.3 K/mm3 (4.5-11.0) H 07/10/20 20:50 RBC 4.81 M/mm3 (3.65-5.03) 07/10/20 20:50 Hgb 14.8 gm/dl (11.8-15.2) 07/10/20 20:50 Hct 42.5 % (35.5-45.6) 07/10/20 20:50 MCV 89 fl (84-94) 07/10/20 20:50 MCH 31 pg (28-32) 07/10/20 20:50 MCHC 35 % (32-34) H 07/10/20 20:50 RDW 13.7 % (13.2-15.2) 07/10/20 20:50 Plt Count 207 K/mm3 (140-440) 07/10/20 20:50 Lymph % (Auto) 6.7 % (13.4-35.0) L 07/10/20 20:50 [place] % (Auto) 8.9 % (0.0-7.3) H 07/10/20 20:50 Eos % (Auto) 0.2 % (0.0-4.3) 07/10/20 20:50 Baso % (Auto) 0.3 % (0.0-1.8) 07/10/20 20:50 Lymph # (Auto) 0.8 K/mm3 (1.2-5.4) L 07/10/20 20:50 [place] # (Auto) 1.0 K/mm3 (0.0-0.8) H 07/10/20 20:50 Eos # (Auto) 0.0 K/mm3 (0.0-0.4) 07/10/20 20:50 Baso # (Auto) 0.0 K/mm3 (0.0-0.1) 07/10/20 20:50 Seg Neutrophils % 83.9 % (40.0-70.0) H 07/10/20 20:50 Seg Neutrophils # 9.5 K/mm3 (1.8-7.7) H 07/10/20 20:50 PT 14.5 Sec. (12.2-14.9) 07/10/20 21:06 INR 1.15 (0.87-1.13) H 07/10/20 21:06 D-Dimer 1024.20 ng/mlDDU (0-234) H 07/11/20 01:30 VBG pH 7.412 (7.320-7.420) 07/10/20 21:06 Sodium 130 mmol/L (137-145) L 07/10/20 20:50 Potassium 4.4 mmol/L (3.6-5.0) 07/10/20 20:50 Chloride 92.0 mmol/L (98-107) L 07/10/20 20:50 Carbon Dioxide 23 mmol/L (22-30) 07/10/20 20:50 Anion Gap 19 mmol/L 07/10/20 20:50 BUN 10 mg/dL (9-20) 07/10/20 20:50 Creatinine 1.0 mg/dL (0.8-1.3) 07/10/20 20:50 Estimated GFR > 60 ml/min 07/10/20 20:50 BUN/Creatinine Ratio 10 % 07/10/20 20:50 Glucose 120 mg/dL (75-100) H 07/11/20 01:30 POC Glucose 133 mg/dL (70-105) H 07/12/20 00:43 Hemoglobin A1c 5.4 % (4-6) 07/11/20 03:17 Lactic Acid 0.90 mmol/L (0.7-2.0) 07/11/20 00:16 Calcium 9.4 mg/dL (8.4-10.2) 07/10/20 20:50 Ferritin 952.7 ng/mL (30.0-300.0) H 07/11/20 01:30 Total Bilirubin 0.50 mg/dL (0.1-1.2) 07/10/20 20:50 AST 73 units/L (5-40) H 07/10/20 20:50 ALT 49 units/L (7-56) 07/10/20 20:50 Alkaline Phosphatase 64 units/L (35-129) 07/10/20 20:50 Lactate Dehydrogenase 290 units/L (91-180) H 07/11/20 01:30 Troponin T < 0.010 ng/mL (0.00-0.029) 07/10/20 Unknown C-Reactive Protein 23.40 mg/dL (0.00-1.30) H 07/11/20 01:30 Total Protein 8.3 g/dL (6.3-8.2) H 07/10/20 20:50 Albumin 3.6 g/dL (3.9-5) L 07/10/20 20:50 Albumin/Globulin Ratio 0.8 % 07/10/20 20:50 Urine Color Yellow (Yellow) 07/10/20 21:01 Urine Turbidity Slightly-cloudy (Clear) 07/10/20 21:01 Urine pH 5.0 (5.0-7.0) 07/10/20 21:01 Ur Specific Chicken 1.023 (1.003-1.030) 07/10/20 21:01 Urine Protein 100 mg/dl mg/dL (Negative) 07/10/20 21:01 Urine Glucose (UA) Neg mg/dL (Negative) 07/10/20 21:01 Urine Ketones Neg mg/dL (Negative) 07/10/20 21:01 Urine Blood Sm (Negative) 07/10/20 21:01 Urine Nitrite Neg (Negative) 07/10/20 21:01 Urine Bilirubin Neg (Negative) 07/10/20 21:01 Urine Urobilinogen 2.0 mg/dL (<2.0) 07/10/20 21:01 Ur Leukocyte Esterase Neg (Negative) 07/10/20 21:01 Urine WBC (Auto) 2.0 /HPF (0.0-6.0) 07/10/20 21:01 Urine RBC (Auto) 3.0 /HPF (0.0-6.0) 07/10/20 21:01 Urine Mucus 3+ /HPF 07/10/20 21:01 CSF Appearance Clear 07/10/20 23:29 CSF Color Colorless 07/10/20 23:29 CSF WBC 2 /mm3 (1-10) 07/10/20 23:29 CSF RBC 2 /mm3 (0-0) 07/10/20 23:29 CSF Seg Neutrophils 0 % (0-6) 07/10/20 23:29 CSF Lymphocytes % 0 % (40-80) 07/10/20 23:29 CSF Reactive Lymphs 0 % 07/10/20 23:29 CSF Monocytes % 0 % (15-45) 07/10/20 23:29 CSF Eosinophils % 0 % 07/10/20 23:29 CSF Basophils 0 % 07/10/20 23:29 CSF Comment Diff performed 07/10/20 23:29 CSF Pathologist Review C 07/10/20 23:29 CSF Glucose 67 mg/dL 07/10/20 23:13 CSF Total Protein 25 mg/dL 07/10/20 23:13 Coronavirus (PCR) Negative (Negative) 07/11/20 Unknown Microbiology: Microbiology 07/10/20 21:06 Peripheral/Venous Blood Culture - Preliminary NO GROWTH AFTER 24 HOURS 07/10/20 21:12 Peripheral/Venous Blood Culture - Preliminary NO GROWTH AFTER 24 HOURS 07/11/20 01:30 Serum Cryptococcal Antigen - Final 07/10/20 23:29 Cerebral Spinal Fluid CSF Culture - Preliminary Gale/IV: Voiding Method Toilet Active Medications - Current Medications Current Medications: Generic Name Dose Route Start Last Admin Trade Name Freq PRN Reason Stop Dose Admin Acetaminophen 650 mg 07/11/20 18:13 07/11/20 18:28 Acetaminophen 325 Mg Tab PO 650 mg Q6H PRN Administration Fever >101 Al Hydrox/Mg Hydrox/Simethicone 15 ml 07/11/20 02:26 Alum-Mag Hydroxide-Simethicone [id number]/5ml Oral Liqd 30 Ml PO Q4H PRN Indigestion Albuterol 2.5 mg 07/11/20 02:26 Albuterol 2.5 Mg/3 Ml Nebu IH Q4HRT PRN Shortness Of Breath Enoxaparin Sodium 40 mg 07/11/20 10:00 07/11/20 09:36 Enoxaparin 40 Mg/0.4 Ml Inj SUB-Q 40 mg QDAY LILY Administration Protocol Sodium Chloride 1,000 mls @ 75 mls/hr 07/11/20 02:45 07/11/20 21:12 Nacl 0.9% 1000 Ml IV 75 mls/hr DIRECT LILY Administration Azithromycin 500 mg/ Sodium 250 mls @ 250 mls/hr 07/11/20 11:00 07/11/20 10:43 Chloride IV 250 mls/hr Q24HR LILY Administration Cefepime HCl 2 gm in 100 mls @ 200 mls/hr 07/11/20 14:00 07/12/20 06:48 Cefepime/Ns 2 Gm/100 Ml IV Infused Q8H LILY Infusion Protocol Metoprolol Tartrate 12.5 mg 07/11/20 14:00 07/11/20 21:12 Metoprolol Tartrate 25 Mg Tab PO 12.5 mg BID LILY Administration Ondansetron HCl 4 mg 07/11/20 02:26 Ondansetron 4 Mg/2 Ml Inj IV Q4H PRN Nausea And Vomiting Tramadol HCl 50 mg 07/11/20 02:26 07/11/20 10:04 Tramadol 50 Mg Tab PO 50 mg Q4H PRN Administration Pain, Moderate (4-6) Trazodone HCl 50 mg 07/11/20 02:26 Trazodone 50 Mg Tab PO QHS PRN Insomnia
[2020-07-12] MEDS: ENOXAPARIN 40 MG/0.4 ML INJ SUB-Q SCH (09:43)
[2020-07-12] MEDS: METOPROLOL TARTRATE 25 MG TAB PO SCH ×2 (09:46→22:21)
[2020-07-12] MEDS: AZITHROMYCIN 500 MG in SODIUM CHLORIDE 0.9% 250ML 250 ML IV SCH (09:47)
[2020-07-12] MEDS ORDERED: VANCOMYCIN 2,000 MG in SODIUM CHLORIDE 0.9% 500 ML 500 ML IV ONE (11:00)
[2020-07-12] MEDS ORDERED: VANCOMYCIN PHARMACY TO DOSE IV SCH (11:00)
--- NOTE | 2020-07-12 11:41 | Progress Note ---
Assessment and Plan - Patient Problems (1) Paroxysmal atrial flutter Current Visit: Yes Status: Acute Plan to address problem: Echocardiogram for further assessment of left ventricular function and left atrial size, beta-praveena therapy for paroxysmal atrial flutter and fibrillation, long-term anticoagulation in the future will depend on hematologic assessment of bleeding risk in the setting of chronic CML. Subjective Date of service: 07/12/20 Interval history: No further cardiac complaints, patient is planned for echocardiogram for further evaluation of paroxysmal atrial fibrillation and flutter. Objective Vital Signs Temp Pulse Resp BP Pulse Ox 07/12/20 09:46 68 116/70 07/12/20 05:39 99.1 F 71 20 111/71 97 07/12/20 00:01 99.0 F 78 20 116/66 97 07/11/20 22:00 97 07/11/20 21:15 66 20 125/69 96 07/11/20 21:12 65 125/69 07/11/20 18:36 99 H 120/70 07/11/20 18:00 101.3 F H 99 H 18 127/82 99 07/11/20 13:29 99.2 F 75 20 126/70 96 - Physical Examination General: No Apparent Distress Neck: Positive: neck supple Cardiac: Positive: Irregularly Regular Lungs: Positive: Decreased Breath Sounds Neuro: Positive: Grossly Intact Abdomen: Positive: Soft, Active Bowel Sounds Skin: Positive: Clear Extremities: Absent: edema
--- NOTE | 2020-07-12 15:25 | Progress Note ---
Assessment and Plan Cultures: Blood culture 07/15/2020 no growth to date. CSF culture 07/10/2020 pending. Assessment: 55 years old male with history of ?CML on oral dasatinib by [facility] admitted on 07/10/2020 secondary to a week history of severe frontal headache associated with nausea: #Sepsis: remains with high fever; source pneumonia pneumonia #Left-sided pneumonia in immunocompromise host: Patient taking desatinib for CML?. Likely community-acquired pneumonia however will rule out bacterial pneumonia, follow invasive pneumonia, PJP, COVID. Elevated CRP of 23. #Headache in immunocompromised host: CSF no evidence of meningitis. CT of the head unremarkable. #History of CML: Follow-up with at [facility] Recommendations: -consult Hem -Obtain SARS-CoV-2 PCR pending -Obtain procalcitonin pending -F/u Streptococcus urine antigen and Legionella urine antigen -F/u asperogillus serum ag -Continue azithromycin -Continue cefepime 2 g IV every 8 hours -Continue vancomycin with PK consult -F/u MRSA PCR -obtain quatiferon Will follow. Donita Garcia MD Infectious Diseases Health Systems Analyst [facility] M [phone] O [phone] Subjective Date of service: 07/12/20 Principal diagnosis: pneumonia Interval history: Feels better. Fever 103 last night. Remains with cough. Objective - Exam Narrative Exam: General appearance: Alert in NAD pleasant Eyes: anicteric sclerae, moist conjunctivae; no lid-lag; PERRLA HENT: Normocephalic, Atraumatic; normal external ears, nares open, oropharynx clear v Neck: supple, tracheal midline, no JVD Lungs: Left-sided crackles CV: RRR no murmur Abdomen: Soft, non-tender; no masses or hepatosplenomegaly Extremities: no edema, no cyanosis Skin: No rash. Psych: no agitated Neuro: alert and oriented x 3. Moving all extermities - Constitutional Vitals: Vital Signs Temp Pulse Resp BP Pulse Ox 97.5 F L 65 18 117/78 98 07/12/20 11:56 07/12/20 11:56 07/12/20 11:56 07/12/20 11:56 07/12/20 11:56 Temperature -Last 24 Hours Temperature 97.5 F Temperature 99.1 F Temperature 99.0 F Temperature 101.3 F - Labs CBC & Chem 7: 07/10/20 20:50 07/11/20 01:30 Labs: Abnormal lab results 07/11/20 07/12/20 07/12/20 Range/Units 15:46 00:43 07:31 POC Glucose 112 H 133 H 108 H (70-105) mg/dL 07/12/20 Range/Units 11:57 POC Glucose 120 H (70-105) mg/dL
[2020-07-13] MEDS: CEFEPIME/NS 2 GM/100 ML 2 GM/100 ML BAG IV SCH ×3 (05:00→22:27)
[2020-07-13] MEDS: VANCOMYCIN 1,500 MG in SODIUM CHLORIDE 0.9% 500 ML 500 ML IV SCH ×2 (06:14→17:38)
[2020-07-13 08:04] LABS: Basophils % (Auto) 0.5 % (0.0-1.8); Eosinophils # (Auto) 0.3 K/mm3 (0.0-0.4); Eosinophils % (Auto) 5.4 % (0.0-4.3); Hematocrit 37.5 % (35.5-45.6); Hemoglobin 12.6 gm/dl (11.8-15.2); Lymphocytes # (Auto) 0.7 K/mm3 (1.2-5.4); Lymphocytes % (Auto) 12.7 % (13.4-35.0); Mean Corpuscular HGB Conc 34 % (32-34); Mean Corpuscular Volume 89 fl (84-94); Monocytes # (Auto) 0.4 K/mm3 (0.0-0.8); Monocytes % (Auto) 7.7 % (0.0-7.3); Platelet Count 228 K/mm3 (140-440); Red Blood Count 4.23 M/mm3 (3.65-5.03); Red Cell Distribution Width 13.8 % (13.2-15.2)
[2020-07-13 08:17] LABS: Blood Urea Nitrogen 10 mg/dL (9-20); Calcium 8.4 mg/dL (8.4-10.2); Hemolysis Index 0
[2020-07-13 08:25] LABS: Alanine Aminotransferase 165 units/L (7-56); Albumin 3.2 g/dL (3.9-5); Blood Urea Nitrogen 10 mg/dL (9-20); Calcium 8.4 mg/dL (8.4-10.2); Hemolysis Index 1
[2020-07-13 08:38] LABS: BUN/Creatinine Ratio 14
[2020-07-13 08:39] LABS: BUN/Creatinine Ratio 14
--- NOTE | 2020-07-13 09:25 | Progress Note ---
Assessment and Plan Cultures: Blood culture 07/15/2020 no growth to date. CSF culture 07/10/2020 pending. Assessment: 55 years old male with history of ?CML on oral dasatinib by [facility] admitted on 07/10/2020 secondary to a week history of severe frontal headache associated with nausea: #Sepsis: Fever improving; source pneumonia pneumonia, procalcitonin improving 1.3. CRP improving. #Left-sided pneumonia in immunocompromise host: Patient taking desatinib for CML?. Likely community-acquired pneumonia however will rule out bacterial pneumonia, fungal invasive pneumonia, PJP, COVID. Elevated CRP of 23. Crypto serum antigen negative. #Headache in immunocompromised host: CSF no evidence of meningitis. CT of the head unremarkable. #History of CML: Follow-up with at [facility] Recommendations: -consult Hem -Obtain 2nd SARS-CoV-2 PCR pending -F/u Streptococcus urine antigen and Legionella urine antigen -F/u aspergillus serum ag -Continue azithromycin total 5 days D3 of 5 -Continue cefepime 2 g IV every 8 hours D3 -Continue vancomycin with PK consult D3 -F/u MRSA PCR pending -obtain quatiferon TB Gold pending Will follow. Donita Garcia MD Infectious Diseases Wildlife Officer [facility] M [phone] O [phone] Subjective Date of service: 07/13/20 Principal diagnosis: pneumonia Interval history: Feels better. Remains with cough. No fever for 24 hours. Objective - Exam Narrative Exam: General appearance: Alert in NAD pleasant Eyes: anicteric sclerae, moist conjunctivae; no lid-lag; PERRLA HENT: Normocephalic, Atraumatic; normal external ears, nares open, oropharynx clear v Neck: supple, tracheal midline, no JVD Lungs: Left-sided crackles CV: RRR no murmur Abdomen: Soft, non-tender; no masses or hepatosplenomegaly Extremities: no edema, no cyanosis Skin: No rash. Psych: no agitated Neuro: alert and oriented x 3. Moving all extermities - Constitutional Vitals: Vital Signs Temp Pulse Resp BP Pulse Ox 98.8 F 65 16 110/68 97 07/13/20 04:17 07/13/20 04:17 07/13/20 04:17 07/13/20 04:17 07/13/20 04:17 Temperature -Last 24 Hours Temperature 98.8 F Temperature 98.7 F Temperature 98.5 F Temperature 97.5 F - Labs CBC & Chem 7: 07/13/20 07:37 07/13/20 07:37 Labs: Abnormal lab results 07/12/20 07/12/20 07/12/20 Range/Units 11:57 16:36 21:11 Lymph % (Auto) (13.4-35.0) % [place] % (Auto) (0.0-7.3) % Eos % (Auto) (0.0-4.3) % Lymph # (Auto) (1.2-5.4) K/mm3 Seg Neutrophils % (40.0-70.0) % Creatinine (0.8-1.3) mg/dL Glucose (75-100) mg/dL POC Glucose 120 H 161 H 143 H (70-105) mg/dL AST (5-40) units/L ALT (7-56) units/L C-Reactive Protein (0.00-1.30) mg/dL Albumin (3.9-5) g/dL 07/13/20 07/13/20 07/13/20 Range/Units 06:16 07:37 07:37 Lymph % (Auto) 12.7 L (13.4-35.0) % [place] % (Auto) 7.7 H (0.0-7.3) % Eos % (Auto) 5.4 H (0.0-4.3) % Lymph # (Auto) 0.7 L (1.2-5.4) K/mm3 Seg Neutrophils % 73.7 H (40.0-70.0) % Creatinine 0.7 L 0.7 L (0.8-1.3) mg/dL Glucose 109 H 119 H (75-100) mg/dL POC Glucose (70-105) mg/dL AST 138 H (5-40) units/L ALT 165 H (7-56) units/L C-Reactive Protein 9.40 H (0.00-1.30) mg/dL Albumin 3.2 L (3.9-5) g/dL 07/13/20 Range/Units 07:47 Lymph % (Auto) (13.4-35.0) % [place] % (Auto) (0.0-7.3) % Eos % (Auto) (0.0-4.3) % Lymph # (Auto) (1.2-5.4) K/mm3 Seg Neutrophils % (40.0-70.0) % Creatinine (0.8-1.3) mg/dL Glucose (75-100) mg/dL POC Glucose 111 H (70-105) mg/dL AST (5-40) units/L ALT (7-56) units/L C-Reactive Protein (0.00-1.30) mg/dL Albumin (3.9-5) g/dL
[2020-07-13] MEDS: AZITHROMYCIN 500 MG in SODIUM CHLORIDE 0.9% 250ML 250 ML IV SCH (10:15)
[2020-07-13] MEDS: FAMOTIDINE 10 MG TAB PO SCH (10:15)
[2020-07-13] MEDS: METOPROLOL TARTRATE 25 MG TAB PO SCH ×2 (10:15→22:27)
[2020-07-13] MEDS: ENOXAPARIN 40 MG/0.4 ML INJ SUB-Q SCH (10:16)
[2020-07-13] MEDS: DASATINIB 50 MG PO SCH (10:46)
--- NOTE | 2020-07-13 11:22 | Progress Note ---
Assessment and Plan - Patient Problems (1) Paroxysmal atrial flutter Current Visit: Yes Status: Acute Plan to address problem: Currently, he is sinus rhythm on telemetry on metoprolol for suppression Echocardiogram results are pending. Continue beta-praveena therapy for suppression of paroxysmal atrial flutter. Long-term anticoagulation depends on hematologic assessment of bleeding risk in the setting of chronic CML. Subjective Date of service: 07/13/20 Principal diagnosis: pneumonia Interval history: Patient is resting in bed and appears comfortable. Currently, he is sinus rhythm on telemetry. Objective Vital Signs Temp Pulse Pulse Resp BP Pulse Ox 07/13/20 09:30 96 07/13/20 04:17 98.8 F 65 16 110/68 97 07/12/20 22:00 70 18 95 07/12/20 21:12 98.7 F 69 20 130/79 98 07/12/20 17:00 95 07/12/20 16:36 98.5 F 67 20 130/77 97 07/12/20 11:56 97.5 F L 65 18 117/78 98 - Physical Examination General: No Apparent Distress HEENT: Positive: PERRL Neck: Positive: neck supple Cardiac: Positive: Reg Rate and Rhythm Neuro: Positive: Grossly Intact Extremities: Absent: edema - Labs and Meds Cardiac Enzymes 07/13/20 Range/Units 07:37 AST 138 H (5-40) units/L CBC 07/13/20 Range/Units 07:37 WBC 5.6 (4.5-11.0) K/mm3 RBC 4.23 (3.65-5.03) M/mm3 Hgb 12.6 (11.8-15.2) gm/dl Hct 37.5 (35.5-45.6) % Plt Count 228 (140-440) K/mm3 Lymph # (Auto) 0.7 L (1.2-5.4) K/mm3 [place] # (Auto) 0.4 (0.0-0.8) K/mm3 Eos # (Auto) 0.3 (0.0-0.4) K/mm3 Baso # (Auto) 0.0 (0.0-0.1) K/mm3 Comprehensive Metabolic Panel 07/13/20 07/13/20 Range/Units 06:16 07:37 Sodium 138 D 138 (137-145) mmol/L Potassium 3.9 4.1 (3.6-5.0) mmol/L Chloride 104.1 105.1 (98-107) mmol/L Carbon Dioxide 25 26 (22-30) mmol/L BUN 10 10 (9-20) mg/dL Creatinine 0.7 L 0.7 L (0.8-1.3) mg/dL Glucose 109 H 119 H (75-100) mg/dL Calcium 8.4 8.4 (8.4-10.2) mg/dL AST 138 H (5-40) units/L ALT 165 H (7-56) units/L Alkaline Phosphatase 77 (35-129) units/L Total Protein 6.7 (6.3-8.2) g/dL Albumin 3.2 L (3.9-5) g/dL
--- NOTE | 2020-07-13 13:47 | Progress Note ---
Assessment and Plan Sepsis. Patient meets criteria given the fever, tachycardia, leukocytosis and diagnosis of pneumonia. Left-sided pneumonia. abx per ID. Paroxysmal atrial fibrillation/flutter, rate controlled, AC recommendation per heamatology Headache. tylenol as needed History of CML. consulted heamatology, has outpt f/u Daily clinical course: 07/12/2020. Follow-up Covid testing. Continue antibiotics of vancomycin, a zithromycin and cefepime. Follow-up MRSA PCR, Aspergillus serum antigen, crypto serum antigen, Streptococcus urine antigen and Legionella urine antigen. Initiate anticoagulation per cardiology. Continue low-dose beta-praveena for rate control. Follow-up echocardiogram 07/13: Patient currently rate controlled for atrial fibrillation and noted to be in normal sinus rhythm on telemetry. Chronic anticoagulation will be based on hematology recommendation -consult placed. Continue current antibiotics per ID. Covid test x2 is negative. Will follow pending serology work-up. Continue supportive care. Subjective Date of service: 07/13/20 Principal diagnosis: pneumonia Interval history: Patient seen and examined Patient sitting on bed appears comfortable Normal sinus rhythm on telemetry Denies any chest pain Tolerating diet Vitals noted and stable Objective - Exam Narrative Exam: General appearance: Present: no acute distress - EENT Eyes: Present: PERRL, EOM intact ENT: hearing intact, clear oral mucosa, dentition normal - Neck Neck: Present: supple, normal ROM - Respiratory Respiratory effort: normal Respiratory: bilateral: CTA - Cardiovascular Rhythm: regular Heart Sounds: Present: S1 & S2. Absent: gallop, rub - Extremities Extremities: no ischemia, No edema, Full ROM - Abdominal General gastrointestinal: soft, non-tender, non-distended, normal bowel sounds - Integumentary Integumentary: Present: clear, warm, dry - Neurologic Neurologic: CNII-XII intact, moves all extremities - Constitutional Vitals: Vital Signs - 12hr 07/13/20 07/13/20 07/13/20 04:17 09:30 11:48 Temperature 98.8 F 98.5 F Pulse Rate 65 73 Respiratory 16 18 Rate Blood Pressure 110/68 138/76 O2 Sat by Pulse 97 96 97 Oximetry - Labs CBC & Chem 7: 07/13/20 07:37 07/13/20 07:37 Labs: Abnormal lab results 07/12/20 07/12/2021 Range/Units 16:36 21:11 06:16 Lymph % (Auto) (13.4-35.0) % [place] % (Auto) (0.0-7.3) % Eos % (Auto) (0.0-4.3) % Lymph # (Auto) (1.2-5.4) K/mm3 Seg Neutrophils % (40.0-70.0) % Creatinine 0.7 L (0.8-1.3) mg/dL Glucose 109 H (75-100) mg/dL POC Glucose 161 H 143 H (70-105) mg/dL AST (5-40) units/L ALT (7-56) units/L C-Reactive Protein (0.00-1.30) mg/dL Albumin (3.9-5) g/dL 07/13/20 07/13/20 07/13/20 Range/Units 07:37 07:37 07:47 Lymph % (Auto) 12.7 L (13.4-35.0) % [place] % (Auto) 7.7 H (0.0-7.3) % Eos % (Auto) 5.4 H (0.0-4.3) % Lymph # (Auto) 0.7 L (1.2-5.4) K/mm3 Seg Neutrophils % 73.7 H (40.0-70.0) % Creatinine 0.7 L (0.8-1.3) mg/dL Glucose 119 H (75-100) mg/dL POC Glucose 111 H (70-105) mg/dL AST 138 H (5-40) units/L ALT 165 H (7-56) units/L C-Reactive Protein 9.40 H (0.00-1.30) mg/dL Albumin 3.2 L (3.9-5) g/dL 07/13/20 Range/Units 11:48 Lymph % (Auto) (13.4-35.0) % [place] % (Auto) (0.0-7.3) % Eos % (Auto) (0.0-4.3) % Lymph # (Auto) (1.2-5.4) K/mm3 Seg Neutrophils % (40.0-70.0) % Creatinine (0.8-1.3) mg/dL Glucose (75-100) mg/dL POC Glucose 144 H (70-105) mg/dL AST (5-40) units/L ALT (7-56) units/L C-Reactive Protein (0.00-1.30) mg/dL Albumin (3.9-5) g/dL HEART Score - HEART Score Troponin: Troponin T < 0.010 ng/mL (0.00-0.029) 07/10/20 Unknown
[2020-07-13] MEDS: SODIUM CHLORIDE 0.9% 1000 ML 1,000 ML IV SCH (14:46)
--- NOTE | 2020-07-13 17:30 | Ultrasound Report ---
LIMITED RUQ ABDOMINAL ULTRASOUND INDICATION / CLINICAL INFORMATION: Elevated LFts. COMPARISON: CT dated 10/25/2016 FINDINGS: PANCREAS: Visualized portions of the pancreas are within normal limits. ABDOMINAL AORTA: No significant abnormality. IVC: No significant abnormality. LIVER: The liver measures 15.9 cm in length. Diffuse increased coarsened hepatic echogenicity. No fo randy hepatic lesion. PORTAL VEIN: Normal hepatopedal blood flow in the main portal vein. GALLBLADDER: Stones and sludge in the gallbladder lumen. No gallbladder wall thickening or pericholec ystic fluid. Sonographic Pride's sign is negative. BILE DUCTS: No significant abnormality. Common bile duct measures 2 mm. RIGHT KIDNEY: No significant abnormality visualized. FREE FLUID: None. ADDITIONAL FINDINGS: None. IMPRESSION: 1. Diffusely increased and coarsened hepatic echotexture, likely represents fatty infiltration or chr onic liver disease. No focal lesion identified. 2. Cholelithiasis without additional sonographic findings of cholecystitis. Signer Name: Armani Arce MD Signed: 07/13/2020 5:25 PM Workstation Name: [id number]
[2020-07-14] MEDS: CEFEPIME/NS 2 GM/100 ML 2 GM/100 ML BAG IV SCH (05:37)
[2020-07-14] MEDS: VANCOMYCIN 1,500 MG in SODIUM CHLORIDE 0.9% 500 ML 500 ML IV SCH (06:35)
--- NOTE | 2020-07-14 10:45 | Hem/Onc Consultation ---
History of Present Illness - History of Present Illness heme/onc consult televisit via tsqrd 54yo man with CML (2018) followed by Dr. Smith at [facility] has been on Sprycel 100mg dialy x 3 years seen about a week ago "doing well" now cough, fever, headache, presumed pneumonia in hospital found to have atrial flutter Ed work up shows-WBC 11.3, hemoglobin 14.8, platelet 207, D-dimer 1024.2, sodium level 130 Lumbar puncture done in ER has been receiving IV Abx generally doing better-->no fever several days, not coughing, not SOB now Covid Ag testing neg Chest CT: LLL opacity EKG: atrial flutter MORE DATA REVIEWED BELOW IMP CML on sprycel, presumed to be in remission immunocomprimised state-->now with probably pneumonia benefitting from IV ABx sprycel may be a factor causing risk for immunocompprimised state and arrythmia PLAN: d/w Dr. Smith at [place] and ID and Dr. Cueto off Sprycel for now-->will reeval after discharge IV Abx-->oral Abd per ID OK for anticoagfor atrial fib from heme perspective (?maybe not needed if atrial fib is assoc with pneumonia) if anticoag is planned, consider xarelto 20mg qd (daily easier) or eliquis 5mg bid Home Medications Medication Instructions Recorded Confirmed Last Taken Dasatinib [Sprycel] 50 mg PO DAILY 07/12/20 07/12/20 Unknown Famotidine [Acid Controller] 10 mg PO DAILY 07/12/20 07/12/20 Unknown Metformin HCl [metFORMIN ER 500 mg PO BID 07/12/20 07/12/20 Unknown Osmotic] lisinopriL [Lisinopril] 10 mg PO DAILY 07/12/20 07/12/20 Unknown Active Medications Acetaminophen (Acetaminophen 325 Mg Tab) 650 mg PO Q6H PRN PRN Reason: Fever >101 Last Admin: 07/11/20 18:28 Dose: 650 mg Documented by: Al Hydrox/Mg Hydrox/Simethicone (Alum-Mag Hydroxide-Simethicone [phone]/5ml Oral Liqd 30 Ml) 15 ml PO Q4H PRN PRN Reason: Indigestion Albuterol (Albuterol 2.5 Mg/3 Ml Nebu) 2.5 mg IH Q4HRT PRN PRN Reason: Shortness Of Breath Enoxaparin Sodium (Enoxaparin 40 Mg/0.4 Ml Inj) 40 mg SUB-Q QDAY COUNTS INCLUDE 234 BEDS AT THE [facility]; Protocol Last Admin: 07/13/20 10:16 Dose: 40 mg Documented by: Famotidine (Famotidine 10 Mg Tab) 10 mg PO DAILY COUNTS INCLUDE 234 BEDS AT THE [facility] Last Admin: 07/13/20 10:15 Dose: 10 mg Documented by: Sodium Chloride (Nacl 0.9% 1000 Ml) 1,000 mls @ 75 mls/hr IV DIRECT COUNTS INCLUDE 234 BEDS AT THE [facility] Last Admin: 07/13/20 14:46 Dose: 75 mls/hr Documented by: Azithromycin 500 mg/ Sodium (Chloride) 250 mls @ 250 mls/hr IV Q24HR COUNTS INCLUDE 234 BEDS AT THE [facility] Stop: 07/15/20 10:59 Last Admin: 07/13/20 10:15 Dose: 250 mls/hr Documented by: Cefepime HCl (Cefepime/Ns 2 Gm/100 Ml) 2 gm in 100 mls @ 200 mls/hr IV Q8H COUNTS INCLUDE 234 BEDS AT THE [facility]; Protocol Last Admin: 07/14/20 05:37 Dose: 200 mls/hr Documented by: Vancomycin HCl 1,750 mg/ (Sodium Chloride) 535 mls @ 333.333 mls/hr IV Q12H COUNTS INCLUDE 234 BEDS AT THE [facility] Metoprolol Tartrate (Metoprolol Tartrate 25 Mg Tab) 12.5 mg PO BID COUNTS INCLUDE 234 BEDS AT THE [facility] Last Admin: 07/13/20 22:27 Dose: 12.5 mg Documented by: Miscellaneous Medication (Dasatinib [Sprycel]) 50 mg PO DAILY COUNTS INCLUDE 234 BEDS AT THE [facility] Last Admin: 07/13/20 10:46 Dose: 50 mg Documented by: Ondansetron HCl (Ondansetron 4 Mg/2 Ml Inj) 4 mg IV Q4H PRN PRN Reason: Nausea And Vomiting Tramadol HCl (Tramadol 50 Mg Tab) 50 mg PO Q4H PRN PRN Reason: Pain, Moderate (4-6) Last Admin: 07/11/20 10:04 Dose: 50 mg Documented by: Trazodone HCl (Trazodone 50 Mg Tab) 50 mg PO QHS PRN PRN Reason: Insomnia Last Admin: 07/12/20 22:21 Dose: 50 mg Documented by: Laboratory Last Values WBC 5.6 K/mm3 (4.5-11.0) 07/13/20 07:37 Hgb 12.6 gm/dl (11.8-15.2) 07/13/20 07:37 Hct 37.5 % (35.5-45.6) 07/13/20 07:37 Plt Count 228 K/mm3 (140-440) 07/13/20 07:37 Seg Neutrophils % 73.7 % (40.0-70.0) H 07/13/20 07:37 D-Dimer 1024.20 ng/mlDDU (0-234) H 07/11/20 01:30 AST 138 units/L (5-40) H 07/13/20 07:37 ALT 165 units/L (7-56) H 07/13/20 07:37 Alkaline Phosphatase 77 units/L (35-129) 07/13/20 07:37 Lactate Dehydrogenase 290 units/L (91-180) H 07/11/20 01:30 C-Reactive Protein 9.40 mg/dL (0.00-1.30) H 07/13/20 07:37 CSF Appearance Clear 07/10/20 23:29 CSF Color Colorless 07/10/20 23:29 CSF WBC 2 /mm3 (1-10) 07/10/20 23:29 CSF RBC 2 /mm3 (0-0) 07/10/20 23:29 CSF Seg Neutrophils 0 % (0-6) 07/10/20 23:29 CSF Lymphocytes % 0 % (40-80) 07/10/20 23:29 CSF Reactive Lymphs 0 % 07/10/20 23:29 CSF Monocytes % 0 % (15-45) 07/10/20 23:29 CSF Eosinophils % 0 % 07/10/20 23:29 CSF Basophils 0 % 07/10/20 23:29 CSF Comment Diff performed 07/10/20 23:29 CSF Pathologist Review C 07/10/20 23:29 CSF Glucose 67 mg/dL 07/10/20 23:13 CSF Total Protein 25 mg/dL 07/10/20 23:13 Vancomycin Trough 9.8 ug/mL (5.0-20.0) 07/14/20 04:35 Coronavirus (PCR) Negative (Negative) 07/13/20 Unknown Past History Past Medical History: diabetes, other (Leucomia) Past Surgical History: No surgical history Social history: no significant social history Medications and Allergies Allergies Allergy/AdvReac Type Severity Reaction Status Date / Time No Known Allergies Allergy Unverified 10/25/16 16:57 Home Medications Medication Instructions Recorded Confirmed Last Taken Type Dasatinib [Sprycel] 50 mg PO DAILY 07/12/20 07/12/20 Unknown History Famotidine [Acid Controller] 10 mg PO DAILY 07/12/20 07/12/20 Unknown History Metformin HCl [metFORMIN ER 500 mg PO BID 07/12/20 07/12/20 Unknown History Osmotic] lisinopriL [Lisinopril] 10 mg PO DAILY 07/12/20 07/12/20 Unknown History Active Meds: Active Medications Acetaminophen (Acetaminophen 325 Mg Tab) 650 mg PO Q6H PRN PRN Reason: Fever >101 Last Admin: 07/11/20 18:28 Dose: 650 mg Documented by: Al Hydrox/Mg Hydrox/Simethicone (Alum-Mag Hydroxide-Simethicone [phone]/5ml Oral Liqd 30 Ml) 15 ml PO Q4H PRN PRN Reason: Indigestion Albuterol (Albuterol 2.5 Mg/3 Ml Nebu) 2.5 mg IH Q4HRT PRN PRN Reason: Shortness Of Breath Enoxaparin Sodium (Enoxaparin 40 Mg/0.4 Ml Inj) 40 mg SUB-Q QDAY LILY; Protocol Last Admin: 07/13/20 10:16 Dose: 40 mg Documented by: Famotidine (Famotidine 10 Mg Tab) 10 mg PO DAILY LILY Last Admin: 07/13/20 10:15 Dose: 10 mg Documented by: Sodium Chloride (Nacl 0.9% 1000 Ml) 1,000 mls @ 75 mls/hr IV DIRECT LILY Last Admin: 07/13/20 14:46 Dose: 75 mls/hr Documented by: Azithromycin 500 mg/ Sodium (Chloride) 250 mls @ 250 mls/hr IV Q24HR LILY Stop: 07/15/20 10:59 Last Admin: 07/13/20 10:15 Dose: 250 mls/hr Documented by: Cefepime HCl (Cefepime/Ns 2 Gm/100 Ml) 2 gm in 100 mls @ 200 mls/hr IV Q8H LILY; Protocol Last Admin: 07/14/20 05:37 Dose: 200 mls/hr Documented by: Vancomycin HCl 1,750 mg/ (Sodium Chloride) 535 mls @ 333.333 mls/hr IV Q12H COUNTS INCLUDE 234 BEDS AT THE [facility] Metoprolol Tartrate (Metoprolol Tartrate 25 Mg Tab) 12.5 mg PO BID COUNTS INCLUDE 234 BEDS AT THE [facility] Last Admin: 07/13/20 22:27 Dose: 12.5 mg Documented by: Miscellaneous Medication (Dasatinib [Sprycel]) 50 mg PO DAILY COUNTS INCLUDE 234 BEDS AT THE [facility] Last Admin: 07/13/20 10:46 Dose: 50 mg Documented by: Ondansetron HCl (Ondansetron 4 Mg/2 Ml Inj) 4 mg IV Q4H PRN PRN Reason: Nausea And Vomiting Tramadol HCl (Tramadol 50 Mg Tab) 50 mg PO Q4H PRN PRN Reason: Pain, Moderate (4-6) Last Admin: 07/11/20 10:04 Dose: 50 mg Documented by: Trazodone HCl (Trazodone 50 Mg Tab) 50 mg PO QHS PRN PRN Reason: Insomnia Last Admin: 07/12/20 22:21 Dose: 50 mg Documented by: Exam - Constitutional Vitals: Last Vital Signs Temp 98.1 F 07/14/20 05:31 Pulse 63 07/14/20 05:31 Resp 18 07/14/20 05:31 BP 111/64 07/14/20 05:31 Pulse Ox 96 07/14/20 05:31 Results - Labs lab Results: Laboratory Results - last 24 hr 07/13/20 07/13/20 07/13/20 11:48 17:27 Unknown POC Glucose 144 H 98 Vancomycin Trough Coronavirus (PCR) Negative 07/14/20 04:35 POC Glucose Vancomycin Trough 9.8 Coronavirus (PCR)
--- NOTE | 2020-07-14 10:47 | Progress Note ---
Assessment and Plan - Patient Problems (1) Paroxysmal atrial flutter Current Visit: Yes Status: Acute Plan to address problem: Currently, he is sinus rhythm on telemetry on metoprolol for suppression Continue beta-praveena therapy for suppression of paroxysmal atrial flutter. Long-term anticoagulation depends on hematologic assessment of bleeding risk in the setting of chronic CML. Subjective Date of service: 07/14/20 Principal diagnosis: pneumonia Interval history: No cardiac events reported. Stable sinus rhythm on telemetry. Objective Vital Signs Temp Pulse Pulse Pulse Resp Resp Resp 07/14/20 05:31 98.1 F 63 18 07/13/20 22:55 07/13/20 22:01 98.6 F 70 20 07/13/20 22:00 76 18 18 07/13/20 21:00 80 16 07/13/20 12:00 76 18 07/13/20 11:48 98.5 F 73 18 BP Pulse Ox 07/14/20 05:31 111/64 96 07/13/20 22:55 96 07/13/20 22:01 116/63 97 07/13/20 22:00 96 07/13/20 21:00 07/13/20 12:00 96 07/13/20 11:48 138/76 97 - Physical Examination General: No Apparent Distress HEENT: Positive: PERRL Neck: Positive: neck supple Cardiac: Positive: Reg Rate and Rhythm Lungs: Positive: Decreased Breath Sounds Neuro: Positive: Grossly Intact Extremities: Absent: edema
[2020-07-14] MEDS: FAMOTIDINE 10 MG TAB PO SCH (10:48)
[2020-07-14] MEDS: AZITHROMYCIN 500 MG in SODIUM CHLORIDE 0.9% 250ML 250 ML IV SCH (10:48)
[2020-07-14] MEDS: DASATINIB 50 MG PO SCH (10:49)
[2020-07-14] MEDS: METOPROLOL TARTRATE 25 MG TAB PO SCH (10:49)
[2020-07-14] MEDS: ENOXAPARIN 40 MG/0.4 ML INJ SUB-Q SCH (10:49)
[2020-07-14] MEDS ORDERED: APIXABAN 5 MG TAB PO SCH (11:00)
--- NOTE | 2020-07-14 12:18 | Progress Note ---
Assessment and Plan Cultures: Blood culture 07/15/2020 no growth to date. CSF culture 07/10/2020 no growth SARS-CoV-2 PCR negative x2 Assessment: 55 years old male with history of ?CML on oral dasatinib by [facility] admitted on 07/10/2020 secondary to a week history of severe frontal headache associated with nausea: #Sepsis: Fever improving; source pneumonia pneumonia, procalcitonin improving 1.3. CRP improving. #Left-sided pneumonia in immunocompromise host: Patient taking desatinib for CML?. Likely community-acquired pneumonia however will rule out bacterial pneumonia, fungal invasive pneumonia, PJP, COVID. Elevated CRP of 23. Crypto serum antigen negative. SARS-CoV-2 PCR x2 - #Headache in immunocompromised host: CSF no evidence of meningitis. CT of the head unremarkable. #History of CML: Diagnosed in 2018 follow-up with at [facility], treated with Sprycel 100 mg daily for 3 years. Presumed to be in remission. #Immunocompromised host Recommendations: -consult Hem/appreciate input, holding off chemotherapy for now -Okay to discharge home on Levaquin 750 g p.o. daily to complete 10 days till 07/20/2020 -F/u Streptococcus urine antigen and Legionella urine antigen -F/u aspergillus serum ag -Continue azithromycin total 5 days D4 of 5 -Continue cefepime 2 g IV every 8 hours D4 -Continue vancomycin with PK consult D4 -F/u MRSA PCR pending -obtain quatiferon TB Gold pending -ID clinic follow-up in 2 weeks will follow pending labs Discussed with attending Will follow. Donita Garcia MD Infectious Diseases Dance Professor [facility] M [phone] O [phone] Subjective Date of service: 07/14/20 Principal diagnosis: pneumonia Interval history: Patient feels better, no fever for 48 hours. Minimal cough. Objective - Exam Narrative Exam: General appearance: Alert in NAD pleasant Eyes: anicteric sclerae, moist conjunctivae; no lid-lag; PERRLA HENT: Normocephalic, Atraumatic; normal external ears, nares open, oropharynx clear v Neck: supple, tracheal midline, no JVD Lungs: Left-sided crackles CV: RRR no murmur Abdomen: Soft, non-tender; no masses or hepatosplenomegaly Extremities: no edema, no cyanosis Skin: No rash. Psych: no agitated Neuro: alert and oriented x 3. Moving all extermities - Constitutional Vitals: Vital Signs Temp Pulse Resp BP Pulse Ox 98.1 F 63 18 111/64 96 07/14/20 05:31 07/14/20 05:31 07/14/20 05:31 07/14/20 05:31 07/14/20 05:31 Temperature -Last 24 Hours Temperature 98.1 F Temperature 98.6 F - Labs CBC & Chem 7: 07/13/20 07:37 07/13/20 07:37 Labs: Abnormal lab results 07/13/20 Range/Units 11:48 POC Glucose 144 H (70-105) mg/dL
--- NOTE | 2020-07-14 13:41 | Discharge Summary ---
Providers - Providers Date of Admission: 07/11/20 03:23 Date of discharge: 07/14/20 Attending physician: LEON NEUMANN 07/11/20 03:22 Consult to Physician [CONS] Routine Comment: Consulting Provider: MIKE WAYNE Physician Instructions: Reason For Exam: PVC 07/11/20 08:37 Consult to Physician [CONS] Routine Comment: Consulting Provider: LINUS LING Physician Instructions: Reason For Exam: sepsis 07/13/20 10:27 Consult to Physician [CONS] Routine Comment: Consulting Provider: VIJI WEBER Physician Instructions: Reason For Exam: h/o CML Primary care physician: REDUCING SYSTEM OPERATOR Hospitalization Condition: Fair Pertinent studies: Chest x-ray, head CT, chest CTA, lower extremity venous Doppler, abdominal u ltrasound Hospital course: The patient is a 54-year-old male history of leukemia received chemotherapy 3 days ago presented to ER on 07/11/20 with a chief complaint of frontal headache for 3 days. Patient also admits to nausea and dry heaving but denies vomiting, unable to eat food, bilateral rib soreness from the dry heaving. Ed work up showed- temperature 100.2, WBC 11.3, hemoglobin 14.8, platelet 207, D-dimer 1024.2, sodium level 130, potassium 4.4, creatinine 1.0, glucose 129. CT of the head was negative, no acute finding, chest x-ray showed left lower lobe pneumonia. Patient was placed on empiric antibiotic and admitted to the hospital for further evaluation and management. Lumbar puncture done spinal fluid collected sent for pathology test: CSF has no sign of meningitis Cardiology was consulted due to frequent PVCs on telemetry. Patient denies any prior history of heart problems or arrhythmias. Review of telemetry revealed intermittent isolated PVCs as well as episodes of paroxysmal atrial fibrillation and flutter. ECG was consistent with atrial flutter, mostly 2:1 AV conduction, isolated PVCs, nonspecific T wave abnormality. Patient was also evaluated for COVID and test was negative. Daily clinical course: 07/12/2020. Follow-up Covid testing. Continue antibiotics of vancomycin, azithromycin and cefepime. Follow-up MRSA PCR, Aspergillus serum antigen, crypto serum antigen, Streptococcus urine antigen and Legionella urine antigen. Initiate anticoagulation per cardiology. Continue low-dose beta-praveena for rate control. Follow-up echocardiogram 07/13: Patient currently rate controlled for atrial fibrillation and noted to be in normal sinus rhythm on telemetry. Chronic anticoagulation will be based on hematology recommendation -consult placed. Continue current antibiotics per ID. Covid test x2 is negative. Will follow pending serology work-up. Continue supportive care. 07/14: hematology was consulted and recommended to hold sprycel for now and resume as outpt. Discussed with ID and recommended to discharge home on Levaquin 750 g p.o. daily to complete 10 days till 07/20/2020. Patient was started on eliquis for paroxysmal atrial fibrillation. Discharge planning management was started discussed with the patient and he was recommended to f/u outpt. Patient was discharged home in stable condition. Patient need to follow-up at ID clinic in 2 weeks for pending labs results. Patient was assessed for home O2 requirement before discharge. Disposition: TO HOME OR SELFCARE Final Discharge Diagnosis (Prints w/discharge instructions): Sepsis. Patient meets criteria given the fever, tachycardia, leukocytosis and diagnosis of pneumonia. Left-sided pneumonia(possible due to gram-negative/positive bacteria)-need abx till 07/20 per ID. Paroxysmal atrial fibrillation/flutter, rate controlled, Placed on eliquis. Headache. tylenol as needed. History of CML. consulted heamatology, has outpt f/u. need to start sprycel as outpt. Immunocomprimised state, likely due to sprycel and underlying CML. Acute hypox ic respiratory failure, likely due to underlying pneumonia, assessed for home O2 before discharge Time spent for discharge: 34 minutes Core Measure Documentation - Palliative Care Palliative Care/ Comfort Measures: Not Applicable - Core Measures Any of the following diagnoses?: none Exam - Physical Exam Narrative exam: General appearance: Present: no acute distress - EENT Eyes: Present: PERRL, EOM intact ENT: hearing intact, clear oral mucosa, dentition normal - Neck Neck: Present: supple, normal ROM - Respiratory Respiratory effort: normal Respiratory: bilateral: CTA - Cardiovascular Rhythm: regular Heart Sounds: Present: S1 & S2. Absent: gallop, rub - Extremities Extremities: no ischemia, No edema, Full ROM - Abdominal General gastrointestinal: soft, non-tender, non-distended, normal bowel sounds - Integumentary Integumentary: Present: clear, warm, dry - Neurologic Neurologic: CNII-XII intact, moves all extremities - Constitutional Vitals: Temp Pulse Resp BP Pulse Ox 98.1 F 63 18 111/64 96 07/14/20 05:31 07/14/20 05:31 07/14/20 05:31 07/14/20 05:31 07/14/20 05:31 Plan Activity: advance as tolerated Weight Bearing Status: Weight Bear as Tolerated Diet: low fat, low salt Additional Instructions: follow-up at ID clinic in 2 weeks for pending labs results. hold sprycel for now and resume as outpt after being seen by avionics repair technician Follow up with: SUMAN ALONSO MD [Primary Care Provider] - 7 Days YAA GÓMEZ MD [Staff Physician] - 7 Days Prescriptions: Apixaban [Eliquis] 5 mg PO Q12HR #60 tablet levoFLOXacin [Levaquin] 750 mg PO QDAY #7 tablet Metoprolol [Lopressor TAB] 12.5 mg PO BID #60 tablet
[2020-07-14 17:21] VITALS: BP 121/75
[2020-07-14] MEDS ORDERED: VANCOMYCIN 1,750 MG in SODIUM CHLORIDE 0.9% 500 ML 500 ML IV SCH (18:00)
== END 2020-07-14 18:26 | disposition home health service (06) | DRG 871 ==
LOC: ED 19:58 → 3A 07-11 03:23
PROVIDERS: ADMIT Internal Medicine Geriatric Medicine; ATTEND Internal Medicine
PROC: 009U3ZX Drainage of Spinal Canal, Percutaneous Approach, Diagnostic (ICD-10-PCS; principal; 2020-07-11)
DX: A41.9 Sepsis, unspecified organism (principal); J18.9 Pneumonia, unspecified organism; J96.01 Acute respiratory failure with hypoxia; I48.92 Unspecified atrial flutter; E87.1 Hypo-osmolality and hyponatremia; I48.0 Paroxysmal atrial fibrillation; I49.3 Ventricular premature depolarization; Z20.822 Contact with and (suspected) exposure to COVID-19; Z85.6 Personal history of leukemia; Z87.891 Personal history of nicotine dependence
CPT/HCPCS: 36415; 70450; 71045; 71275; 76705; 80048; 80053; 80202; 81001; 82140; 82728; 82805; 82947; 82962; 83036; 83615; 84145; 84160; 84484; 85025; 85379; 85610; 86140; 86403; 87040; 87086; 87116; 87449; 89051; 93005; 93306; 93970; 94640; 94760; 96374; 96375; G0378; J0456; J0692; J0696; J1650; J2405; J3010; J3370; J7030; J7040; J7050; Q9967; U0003